=== PATIENT | female | born 1930 | race Asian ===

== ENCOUNTER 2017-08-04 11:33 | Inpatient (IN) ==
[2017-08-04] MEDS ORDERED: cefTRIAXone 1,000 MG in SODIUM CHLORIDE 0.9% 100 ML IV STA (13:30)
[2017-08-04] MEDS ORDERED: AZITHROMYCIN INJ 500 MG in SODIUM CHLORIDE 0.9% 250 ML IV STA (13:30)
[2017-08-04] MEDS ORDERED: ALBUTEROL 2.5 MG/3 ML NEB RESP TX SCH (13:30)
[2017-08-04] MEDS ORDERED: FUROSEMIDE 100 MG/10 ML VIAL IV STA (13:30)
[2017-08-04] MEDS ORDERED: ONDANSETRON 4 MG/2 ML VIAL IV STA (13:30)
[2017-08-04] MEDS ORDERED: methylPREDNISolone SOD SUC 125 MG/2 ML VIAL IV STA (13:30)
[2017-08-04] MEDS ORDERED: FUROSEMIDE 40 MG/4 ML VIAL ONE (14:39)
[2017-08-04] MEDS ORDERED: AZITHROMYCIN 500 MG VIAL IV ONE (14:39)
[2017-08-04] MEDS ORDERED: methylPREDNISolone SOD SUC 125 MG/2 ML VIAL ONE (14:40)
[2017-08-04] MEDS ORDERED: cefTRIAXone 1,000 MG VIAL ONE (14:40)
[2017-08-04] MEDS ORDERED: ONDANSETRON 4 MG/2 ML VIAL ONE (14:40)
[2017-08-04] MEDS ORDERED: FUROSEMIDE 20 MG/2 ML VIAL ONE (14:40)
[2017-08-04 16:36] LABS: Basophils % 0.3 % (0.0-0.8); Eosinophils # 0.2 10*3/uL (0.0-0.87); Hematocrit 32.9 VOL% (35.7-47.0); Hemoglobin 10.4 GM/DL (12.0-16.0); Immature Granulocytes % 0.8 %; Immature Granulocytes Absolute 0.06 #; Lymphocytes # 1.5 10*3/uL (1.4-4.0); Lymphocytes % 18.9 % (21.3-54.2); Mean Corpuscular HGB Conc 31.6 GM/DL (32-36); Mean Corpuscular Hemoglobin 33 PG (27-34); Mean Corpuscular Volume 105.8 FL (87-102); Mean Platelet Volume 13.5 FL (9.6-12.0); Monocytes # 0.9 10*3/uL (0.11-0.8); Monocytes % 11.4 % (1.7-12.7); Neutrophils # 5.2 10*3/uL (1.4-7.4); Neutrophils % 65.6 % (38.7-73.9); Platelet Count 103 T/CUMM (130-400); Red Blood Count 3.11 MC/CUMM (3.8-5.5); Red Cell Distribution Width 15.4 % (9.3-17.3)
[2017-08-04 16:48] LABS: INR 2.8
[2017-08-04 16:55] LABS: Partial Thromboplastin Time 40.7 SECS (0-40)
[2017-08-04 16:56] LABS: PT Patient Result 28.7 SECS
[2017-08-04 17:01] LABS: Alanine Aminotransferase 15 U/L (13-56); Alkaline Phosphatase 95 U/L (45-117); Aspartate Amino Transferase 22 U/L (0-37); Blood Urea Nitrogen 17 MG/DL (7-18); Glucose 101 MG/DL (74-106); Osmolality,Calculated 282.3 MOS/KG (273-304); Potassium 3.8 MMOL/L (3.5-5.1); Sodium 141 MMOL/L (136-145); Total Protein 7.1 G/DL (6.4-8.3)
[2017-08-04 17:08] LABS: Troponin I Only 0.119 NG/ML (0.00-0.045)
[2017-08-04] MEDS ORDERED: ALBUTEROL 2.5 MG/3 ML NEB RESP TX PRN (19:11)
[2017-08-04] MEDS ORDERED: ONDANSETRON 4 MG/2 ML VIAL IV PRN (19:12)
[2017-08-04 21:08] LABS: Apearance,Urine CLEAR (Clear); Bilirubin,Urine Negative (Negative); Blood, Urine Small mg/dL (Negative); Glucose,Urine (UA) Negative (Negative); Ketones,Urine Negative (Negative); Nitrite,Urine Negative (Negative); Protein,Urine Negative; RBC,Urine <1 /HPF (0-4); Urine Color Yellow (Yellow); Urine Specific Gravity 1.009 (1.001-1.035); WBC,Urine <1 /HPF (0-6)
[2017-08-04] MEDS: ATORVASTATIN 40 MG TABLET PO SCH (21:45)
[2017-08-04] MEDS: WARFARIN 5 MG TABLET PO SCH (21:45)
[2017-08-04] MEDS: CARVEDILOL 25 MG TABLET PO SCH (21:45)
[2017-08-04] MEDS: POTASSIUM CHLORIDE 20 MEQ TABLET PO SCH (21:45)
[2017-08-04] MEDS: guaiFENesin/DM ER 600-30 MG TABLET PO SCH (21:45)
[2017-08-04] MEDS: FUROSEMIDE 40 MG/4 ML VIAL IV SCH (21:45)
[2017-08-05] MEDS: FUROSEMIDE 40 MG/4 ML VIAL IV SCH ×3 (01:07→13:30)
[2017-08-05] MEDS: POTASSIUM CHLORIDE 20 MEQ TABLET PO SCH ×2 (01:07→04:42)
[2017-08-05] MEDS: NITROGLYCERIN 2% OINT 1 INCH/GM PACK TOP SCH ×5 (01:07→21:27)
[2017-08-05 05:53] LABS: Basophils % 0.1 % (0.0-0.8); Hematocrit 33.3 VOL% (35.7-47.0); Hemoglobin 10.5 GM/DL (12.0-16.0); Immature Granulocytes % 0.6 %; Immature Granulocytes Absolute 0.06 #; Lymphocytes # 0.5 10*3/uL (1.4-4.0); Lymphocytes % 4.7 % (21.3-54.2); Mean Corpuscular HGB Conc 31.5 GM/DL (32-36); Mean Corpuscular Hemoglobin 33 PG (27-34); Mean Corpuscular Volume 105.7 FL (87-102); Mean Platelet Volume 14.3 FL (9.6-12.0); Monocytes # 0.2 10*3/uL (0.11-0.8); Monocytes % 1.9 % (1.7-12.7); Neutrophils # 9.6 10*3/uL (1.4-7.4); Neutrophils % 92.7 % (38.7-73.9); Platelet Count 108 T/CUMM (130-400); Red Blood Count 3.15 MC/CUMM (3.8-5.5); Red Cell Distribution Width 15.2 % (9.3-17.3); White Blood Count 10.4 T/CUMM (4-12)
[2017-08-05] MEDS: LEVOTHYROXINE 25 MCG TABLET PO SCH (05:53)
[2017-08-05 06:12] LABS: Calcium 8.4 MG/DL (8.5-10.1); Magnesium 1.8 MG/DL (1.8-2.4); Osmolality,Calculated 287.3 MOS/KG (273-304); Potassium 4.5 MMOL/L (3.5-5.1); Risk Ratio 2.41; VLDL CHOLESTEROL 11.4 MG/DL
[2017-08-05 06:13] LABS: INR 2.6
[2017-08-05 06:26] LABS: PT Patient Result 26.8 SECS
[2017-08-05 06:33] LABS: Lymphocytes 5 % (20-55); Segmented Neutrophils 93 % (50-85); Total Cells Counted 100
[2017-08-05 06:34] LABS: Hypochromasia 1+; Platelet Estimate Decreased
[2017-08-05] MEDS ORDERED: LEVOFLOXACIN 500 MG TABLET PO ONE (09:00)
[2017-08-05] MEDS: CARVEDILOL 25 MG TABLET PO SCH ×2 (10:09→21:20)
[2017-08-05] MEDS: amLODIPine 5 MG TABLET PO SCH (10:09)
[2017-08-05] MEDS: guaiFENesin/DM ER 600-30 MG TABLET PO SCH ×2 (10:09→21:20)
[2017-08-05] MEDS: ALLOPURINOL 100 MG TABLET PO SCH (10:09)
[2017-08-05] MEDS: OLMESARTAN 20 MG TABLET PO SCH (10:10)
[2017-08-05] MEDS ORDERED: ACETAMINOPHEN 325 MG TABLET PO PRN (16:04)
[2017-08-05] MEDS: FUROSEMIDE 40 MG TABLET PO SCH (16:39)
[2017-08-05] MEDS: WARFARIN 5 MG TABLET PO SCH (19:09)
[2017-08-05] MEDS: ATORVASTATIN 40 MG TABLET PO SCH (21:20)
[2017-08-06] MEDS: NITROGLYCERIN 2% OINT 1 INCH/GM PACK TOP SCH ×4 (02:49→17:45)
[2017-08-06 06:07] LABS: Calcium 8.9 MG/DL (8.5-10.1); Osmolality,Calculated 288.5 MOS/KG (273-304); Potassium 4.3 MMOL/L (3.5-5.1)
[2017-08-06] MEDS: LEVOTHYROXINE 25 MCG TABLET PO SCH (06:33)
[2017-08-06] MEDS: FUROSEMIDE 40 MG TABLET PO SCH ×2 (08:18→16:11)
[2017-08-06] MEDS: guaiFENesin/DM ER 600-30 MG TABLET PO SCH ×2 (08:19→21:40)
[2017-08-06] MEDS: ALLOPURINOL 100 MG TABLET PO SCH (08:19)
[2017-08-06] MEDS: LEVOFLOXACIN 250 MG TABLET PO SCH (08:19)
[2017-08-06] MEDS: amLODIPine 5 MG TABLET PO SCH (08:19)
[2017-08-06] MEDS: CARVEDILOL 25 MG TABLET PO SCH ×2 (08:19→23:28)
[2017-08-06] MEDS: OLMESARTAN 20 MG TABLET PO SCH (08:19)
[2017-08-06] MEDS ORDERED: WARFARIN 7.5 MG TABLET PO SCH (19:11)
[2017-08-06] MEDS: ATORVASTATIN 40 MG TABLET PO SCH (21:40)
[2017-08-07] MEDS: NITROGLYCERIN 2% OINT 1 INCH/GM PACK TOP SCH ×3 (03:34→12:22)
[2017-08-07] MEDS: LEVOTHYROXINE 25 MCG TABLET PO SCH (05:39)
[2017-08-07 06:08] LABS: Calcium 8.4 MG/DL (8.5-10.1); Osmolality,Calculated 290.5 MOS/KG (273-304); Potassium 4.4 MMOL/L (3.5-5.1)
[2017-08-07 07:59] VITALS: BP 123/58
[2017-08-07] MEDS: ALLOPURINOL 100 MG TABLET PO SCH (08:36)
[2017-08-07] MEDS: CARVEDILOL 25 MG TABLET PO SCH (08:36)
[2017-08-07] MEDS: LEVOFLOXACIN 250 MG TABLET PO SCH (08:36)
[2017-08-07] MEDS: amLODIPine 5 MG TABLET PO SCH (08:37)
[2017-08-07] MEDS: guaiFENesin/DM ER 600-30 MG TABLET PO SCH (08:37)
[2017-08-07] MEDS: FUROSEMIDE 40 MG TABLET PO SCH (08:37)
[2017-08-07] MEDS: OLMESARTAN 20 MG TABLET PO SCH (08:37)
== END 2017-08-07 13:10 | disposition home or self-care (01) | DRG 291 ==
LOC: N.ED 11:33 → SUATTDRO 18:16 → N.EDINP 18:16 → N.TELEN 19:40
PROVIDERS: ADMIT Hospitalist; ATTEND Internal Medicine

== ENCOUNTER 2017-09-01 02:45 | Inpatient (IN) ==
[2017-09-01] MEDS ORDERED: SODIUM CHLORIDE 0.9% 500 ML IV STA (03:50)
[2017-09-01 05:04] LABS: Basophils % 0.2 % (0.0-0.8); Eosinophils % 0.2 % (0.00-10.9); Hematocrit 42.5 VOL% (35.7-47.0); Hemoglobin 13.5 GM/DL (12.0-16.0); Immature Granulocytes % 0.7 %; Immature Granulocytes Absolute 0.03 #; Lymphocytes # 0.7 10*3/uL (1.4-4.0); Lymphocytes % 16.4 % (21.3-54.2); Mean Corpuscular HGB Conc 31.8 GM/DL (32-36); Mean Corpuscular Hemoglobin 33 PG (27-34); Mean Corpuscular Volume 103.9 FL (87-102); Monocytes # 0.7 10*3/uL (0.11-0.8); Monocytes % 16.9 % (1.7-12.7); Neutrophils # 2.7 10*3/uL (1.4-7.4); Neutrophils % 65.6 % (38.7-73.9); Red Blood Count 4.09 MC/CUMM (3.8-5.5); Red Cell Distribution Width 14.4 % (9.3-17.3); White Blood Count 4.2 T/CUMM (4-12)
[2017-09-01 05:07] LABS: Albumin 3.5 G/DL (3.4-5.0); Bilirubin,Total 0.5 MG/DL (0.2-1.0); Calcium 8.8 MG/DL (8.5-10.1); Osmolality,Calculated 277.1 MOS/KG (273-304); Potassium 4.6 MMOL/L (3.5-5.1); Total Protein 7.1 G/DL (6.4-8.3)
[2017-09-01 05:09] LABS: INR 2.8
[2017-09-01 05:17] LABS: Platelet Count 94 T/CUMM (130-400)
[2017-09-01 05:26] LABS: PT Patient Result 28.5 SECS
[2017-09-01 05:28] LABS: Troponin I Only 0.15 NG/ML (0.00-0.045)
[2017-09-01 05:43] LABS: Lactic Acid 1.5 MMOL/L (0.4-2.0)
[2017-09-01] MEDS: ACYCLOVIR INJ 1,000 MG in SODIUM CHLORIDE 0.9% 250 ML IV SCH ×3 (05:50→21:43)
[2017-09-01 06:18] LABS: Eosinophils 2 % (0-10); Hypochromasia 1+; Lymphocytes 17 % (20-55); Platelet Estimate Decreased; Segmented Neutrophils 68 % (50-85); Total Cells Counted 100
[2017-09-01 06:21] LABS: Apearance,Urine Slightly Hazy (Clear); Urine Color Yellow (Yellow)
[2017-09-01 06:22] LABS: Bilirubin,Urine Negative (Negative); Blood, Urine Negative (Negative); Glucose,Urine (UA) Negative (Negative); Hyaline Casts,Urine 5 /LPF (0-3); Ketones,Urine 5 mg/dL (Negative); Mucus,Urine Occasional /LPF (Occasional); Nitrite,Urine Negative (Negative); Protein,Urine 30 MG/DL; Squamous Epithelial Cell,Urine Occasional /HPF (0-10); Urine Specific Gravity 1.013 (1.001-1.035); Urine Urobilinogen < 2.0 EU/DL (0.2-1.0); WBC,Urine 1 /HPF (0-6)
[2017-09-01] MEDS ORDERED: ONDANSETRON 4 MG/2 ML VIAL IV PRN (08:55)
[2017-09-01] MEDS ORDERED: MORPHINE 2 MG/1 ML SYRINGE IV PRN (08:55)
[2017-09-01] MEDS ORDERED: FUROSEMIDE 40 MG TABLET PO SCH (08:55)
[2017-09-01] MEDS ORDERED: OLMESARTAN 20 MG TABLET PO SCH (09:00)
[2017-09-01] MEDS: PANTOPRAZOLE 40 MG TABLET PO SCH (10:00)
[2017-09-01] MEDS: ALLOPURINOL 100 MG TABLET PO SCH (10:00)
[2017-09-01] MEDS: LEVOTHYROXINE 25 MCG TABLET PO SCH (10:00)
[2017-09-01] MEDS: DOCUSATE SODIUM 100 MG CAPSULE PO SCH ×2 (10:00→21:44)
[2017-09-01] MEDS: SODIUM CHLORIDE 0.9% 1,000 ML IV SCH (10:01)
[2017-09-01] MEDS: ASPIRIN 325 MG TABLET PO SCH (10:01)
[2017-09-01] MEDS: CETIRIZINE 10 MG TABLET PO SCH (10:02)
[2017-09-01 10:11] LABS: Risk Ratio 3.71; Thyroid Stimulating Hormone 8.91 uIU/ml (0.358-3.74); VLDL CHOLESTEROL 24.8 MG/DL
[2017-09-01] MEDS: WARFARIN 5 MG TABLET PO SCH (17:15)
[2017-09-01] MEDS: ATORVASTATIN 40 MG TABLET PO SCH (21:44)
[2017-09-01] MEDS ORDERED: GABAPENTIN 400 MG CAPSULE PO ONE (23:30)
[2017-09-02] MEDS: ACYCLOVIR INJ 1,000 MG in SODIUM CHLORIDE 0.9% 250 ML IV SCH ×3 (06:00→23:08)
[2017-09-02] MEDS: LEVOTHYROXINE 25 MCG TABLET PO SCH (06:00)
[2017-09-02] MEDS: valACYclovir 500 MG TABLET PO SCH ×3 (09:22→23:08)
[2017-09-02] MEDS: CETIRIZINE 10 MG TABLET PO SCH (09:23)
[2017-09-02] MEDS: PANTOPRAZOLE 40 MG TABLET PO SCH (09:23)
[2017-09-02] MEDS: DOCUSATE SODIUM 100 MG CAPSULE PO SCH ×2 (09:24→23:08)
[2017-09-02] MEDS: ASPIRIN 325 MG TABLET PO SCH (09:24)
[2017-09-02] MEDS: ALLOPURINOL 100 MG TABLET PO SCH (09:24)
[2017-09-02] MEDS: SODIUM CHLORIDE 0.9% 1,000 ML IV SCH ×2 (09:25→12:52)
[2017-09-02] MEDS: WARFARIN 5 MG TABLET PO SCH (19:26)
[2017-09-02] MEDS: ATORVASTATIN 40 MG TABLET PO SCH (23:09)
[2017-09-03] MEDS: SODIUM CHLORIDE 0.9% 1,000 ML IV SCH ×2 (06:00→21:10)
[2017-09-03] MEDS: ACYCLOVIR INJ 1,000 MG in SODIUM CHLORIDE 0.9% 250 ML IV SCH (06:01)
[2017-09-03] MEDS: LEVOTHYROXINE 25 MCG TABLET PO SCH (06:01)
[2017-09-03 06:35] LABS: Calcium 7.4 MG/DL (8.5-10.1); Osmolality,Calculated 292.8 MOS/KG (273-304)
[2017-09-03] MEDS ORDERED: ACYCLOVIR INJ 500 MG in SODIUM CHLORIDE 0.9% 100 ML IV SCH (09:00)
[2017-09-03] MEDS: ASPIRIN 325 MG TABLET PO SCH (09:10)
[2017-09-03] MEDS: ALLOPURINOL 100 MG TABLET PO SCH (09:10)
[2017-09-03] MEDS: valACYclovir 500 MG TABLET PO SCH ×3 (09:10→21:10)
[2017-09-03] MEDS: CETIRIZINE 10 MG TABLET PO SCH (09:10)
[2017-09-03] MEDS: PANTOPRAZOLE 40 MG TABLET PO SCH (09:10)
[2017-09-03] MEDS: DOCUSATE SODIUM 100 MG CAPSULE PO SCH ×2 (09:10→21:08)
[2017-09-03] MEDS ORDERED: LEVOFLOXACIN INJ 500 MG in PREMIX 1 EACH IV ONE (16:20)
[2017-09-03 17:06] LABS: PT Patient Result 64.7 SECS
[2017-09-03 17:07] LABS: INR 6.6
[2017-09-03] MEDS ORDERED: WARFARIN 7.5 MG TABLET PO SCH (18:00)
[2017-09-03] MEDS: ATORVASTATIN 40 MG TABLET PO SCH (21:08)
[2017-09-04] MEDS: ACETAMINOPHEN 325 MG TABLET PO PRN ×2 (02:39→08:48)
[2017-09-04] MEDS: SODIUM CHLORIDE 0.9% 1,000 ML IV SCH ×2 (02:40→17:39)
[2017-09-04] MEDS: LEVOTHYROXINE 25 MCG TABLET PO SCH (05:49)
[2017-09-04 06:11] LABS: Basophils % 0.2 % (0.0-0.8); Eosinophils # 0.3 10*3/uL (0.0-0.87); Eosinophils % 4.3 % (0.00-10.9); Hematocrit 30.4 VOL% (35.7-47.0); Hemoglobin 9.7 GM/DL (12.0-16.0); Immature Granulocytes % 0.7 %; Immature Granulocytes Absolute 0.04 #; Lymphocytes # 0.9 10*3/uL (1.4-4.0); Lymphocytes % 14.3 % (21.3-54.2); Mean Corpuscular HGB Conc 31.9 GM/DL (32-36); Mean Corpuscular Hemoglobin 33 PG (27-34); Mean Corpuscular Volume 104.1 FL (87-102); Monocytes # 0.8 10*3/uL (0.11-0.8); Monocytes % 12.5 % (1.7-12.7); Neutrophils # 4.2 10*3/uL (1.4-7.4); Platelet Count 73 T/CUMM (130-400); Red Blood Count 2.92 MC/CUMM (3.8-5.5); Red Cell Distribution Width 14.7 % (9.3-17.3); White Blood Count 6.1 T/CUMM (4-12)
[2017-09-04 06:33] LABS: Hypochromasia 1+; Target Cells Slight
[2017-09-04 06:36] LABS: PT Patient Result 58.9 SECS; Partial Thromboplastin Time 55.6 SECS (0-40)
[2017-09-04 06:44] LABS: Calcium 6.9 MG/DL (8.5-10.1); Osmolality,Calculated 291.1 MOS/KG (273-304); Potassium 4.3 MMOL/L (3.5-5.1)
[2017-09-04] MEDS: ALLOPURINOL 100 MG TABLET PO SCH (08:47)
[2017-09-04] MEDS: valACYclovir 500 MG TABLET PO SCH ×3 (08:47→21:03)
[2017-09-04] MEDS: DOCUSATE SODIUM 100 MG CAPSULE PO SCH ×2 (08:48→21:02)
[2017-09-04] MEDS: ASPIRIN EC 81 MG TABLET PO SCH (08:49)
[2017-09-04] MEDS: PANTOPRAZOLE 40 MG TABLET PO SCH (08:49)
[2017-09-04] MEDS: CETIRIZINE 10 MG TABLET PO SCH (08:49)
[2017-09-04] MEDS: ACYCLOVIR INJ 250 MG in SODIUM CHLORIDE 0.9% 100 ML IV SCH (08:51)
[2017-09-04] MEDS ORDERED: FUROSEMIDE 40 MG/4 ML VIAL IV ONE (18:10)
[2017-09-04] MEDS ORDERED: FUROSEMIDE 40 MG/4 ML VIAL ONE (18:21)
[2017-09-04] MEDS: ALBUTEROL 2.5 MG/3 ML NEB RESP TX PRN (18:25)
[2017-09-04] MEDS ORDERED: IPRATROPIUM 500 MCG/2.5 ML NEB RESP TX PRN (18:35)
[2017-09-04 19:21] LABS: ABG Base Excess -11.4 MMOL/L (-2.5-2.5); ABG HCO3 15.5 MMOL/L (20-26); ABG Oxygen Saturation 96.5 % (95-100); ABG PCO2 31.3 MM HG (35-48); ABG PH 7.274 (7.35-7.45); ABG PO2 88.3 MM HG (80-95); ABG TCO2 13.2 MMOL/L (23-27); Allen Test Positive
[2017-09-04] MEDS: ATORVASTATIN 40 MG TABLET PO SCH (21:02)
[2017-09-05] MEDS: ALBUTEROL 2.5 MG/3 ML NEB RESP TX PRN ×2 (01:11→12:55)
[2017-09-05] MEDS ORDERED: ZALEPLON 5 MG CAPSULE PO PRN (01:55)
[2017-09-05 07:28] LABS: Eosinophils # 0.1 10*3/uL (0.0-0.87); Eosinophils % 0.6 % (0.00-10.9); Hemoglobin 10.7 GM/DL (12.0-16.0); Immature Granulocytes % 0.9 %; Immature Granulocytes Absolute 0.07 #; Lymphocytes # 0.8 10*3/uL (1.4-4.0); Lymphocytes % 9.9 % (21.3-54.2); Mean Corpuscular HGB Conc 31.5 GM/DL (32-36); Mean Corpuscular Hemoglobin 33 PG (27-34); Mean Corpuscular Volume 104.6 FL (87-102); Mean Platelet Volume 14.2 FL (9.6-12.0); Monocytes # 0.8 10*3/uL (0.11-0.8); Monocytes % 9.4 % (1.7-12.7); Neutrophils # 6.3 10*3/uL (1.4-7.4); Neutrophils % 79.2 % (38.7-73.9); Platelet Count 81 T/CUMM (130-400); Red Blood Count 3.25 MC/CUMM (3.8-5.5); Red Cell Distribution Width 14.6 % (9.3-17.3)
[2017-09-05] MEDS: LEVOTHYROXINE 25 MCG TABLET PO SCH (07:35)
[2017-09-05 07:56] LABS: Hypochromasia 1+; Macrocytosis Slight
[2017-09-05 08:17] LABS: Calcium 7.7 MG/DL (8.5-10.1); Osmolality,Calculated 292.3 MOS/KG (273-304); PT Patient Result 54.3 SECS; Potassium 4.5 MMOL/L (3.5-5.1)
[2017-09-05 08:18] LABS: INR 5.5
[2017-09-05] MEDS: DOCUSATE SODIUM 100 MG CAPSULE PO SCH ×2 (09:06→21:32)
[2017-09-05] MEDS: valACYclovir 500 MG TABLET PO SCH (09:06)
[2017-09-05] MEDS: CETIRIZINE 10 MG TABLET PO SCH (09:06)
[2017-09-05] MEDS: PANTOPRAZOLE 40 MG TABLET PO SCH (09:06)
[2017-09-05] MEDS: ALLOPURINOL 100 MG TABLET PO SCH (09:06)
[2017-09-05] MEDS: ASPIRIN EC 81 MG TABLET PO SCH (09:06)
[2017-09-05] MEDS: ACYCLOVIR INJ 250 MG in SODIUM CHLORIDE 0.9% 100 ML IV SCH (09:09)
[2017-09-05 10:15] LABS: Apearance,Urine CLEAR (Clear); Bacteria,Urine Occasional /HPF (Few); Bilirubin,Urine Negative (Negative); Blood, Urine Small mg/dL (Negative); Glucose,Urine (UA) Negative (Negative); Ketones,Urine Negative (Negative); Nitrite,Urine Negative (Negative); Protein,Urine Negative; RBC,Urine 8 /HPF (0-4); Squamous Epithelial Cell,Urine Occasional /HPF (0-10); Urine Color Yellow (Yellow); Urine Specific Gravity 1.006 (1.001-1.035); Urine Urobilinogen < 2.0 EU/DL (0.2-1.0); WBC,Urine 1 /HPF (0-6)
[2017-09-05] MEDS: SODIUM CHLORIDE 0.9% 1,000 ML IV SCH ×2 (10:50→17:44)
[2017-09-05] MEDS ORDERED: LORazepam 2 MG/1 ML VIAL IV PRN (15:18)
[2017-09-05] MEDS ORDERED: ZIPRASIDONE 20 MG/1 ML VIAL IM PRN (15:19)
[2017-09-05] MEDS: LEVOFLOXACIN INJ 500 MG in PREMIX 1 EACH IV SCH ×2 (16:48→19:15)
[2017-09-05] MEDS ORDERED: methylPREDNISolone SOD SUC 125 MG/2 ML VIAL IV ONE (18:58)
[2017-09-05] MEDS ORDERED: FUROSEMIDE 40 MG/4 ML VIAL ONE (19:02)
[2017-09-05] MEDS ORDERED: methylPREDNISolone SOD SUC 40 MG/1 ML VIAL ONE (19:03)
[2017-09-05] MEDS ORDERED: FUROSEMIDE 40 MG/4 ML VIAL IV ONE (19:19)
[2017-09-05] MEDS ORDERED: SODIUM BICARB INJ 50 MEQ in SODIUM CHLORIDE 0.45% 1,000 ML IV SCH (21:00)
[2017-09-05] MEDS: ATORVASTATIN 40 MG TABLET PO SCH (21:32)
[2017-09-06 06:36] LABS: Basophils % 0.1 % (0.0-0.8); Hematocrit 35.5 VOL% (35.7-47.0); Hemoglobin 11.4 GM/DL (12.0-16.0); Immature Granulocytes % 0.9 %; Immature Granulocytes Absolute 0.08 #; Lymphocytes # 0.4 10*3/uL (1.4-4.0); Lymphocytes % 4.2 % (21.3-54.2); Mean Corpuscular HGB Conc 32.1 GM/DL (32-36); Mean Corpuscular Hemoglobin 33 PG (27-34); Mean Corpuscular Volume 101.4 FL (87-102); Mean Platelet Volume 14.1 FL (9.6-12.0); Monocytes # 0.1 10*3/uL (0.11-0.8); Monocytes % 1.2 % (1.7-12.7); Neutrophils # 8.3 10*3/uL (1.4-7.4); Neutrophils % 93.6 % (38.7-73.9); Platelet Count 80 T/CUMM (130-400); Red Cell Distribution Width 14.5 % (9.3-17.3); White Blood Count 8.9 T/CUMM (4-12)
[2017-09-06 06:47] LABS: INR 4.6
[2017-09-06] MEDS: LEVOTHYROXINE 25 MCG TABLET PO SCH (06:49)
[2017-09-06 06:59] LABS: PT Patient Result 45.6 SECS
[2017-09-06 07:02] LABS: Hypochromasia Slight; Lymphocytes 2 % (20-55); Segmented Neutrophils 97 % (50-85); Total Cells Counted 100
[2017-09-06 07:03] LABS: Platelet Estimate Decreased
[2017-09-06 07:16] LABS: Calcium 7.7 MG/DL (8.5-10.1); Osmolality,Calculated 296.4 MOS/KG (273-304)
[2017-09-06] MEDS: SODIUM CHLORIDE 0.9% 1,000 ML IV SCH ×2 (09:36→16:09)
[2017-09-06] MEDS: ASPIRIN EC 81 MG TABLET PO SCH (09:39)
[2017-09-06] MEDS: cloNIDine 0.1 MG TABLET PO SCH ×3 (09:39→20:31)
[2017-09-06] MEDS: PANTOPRAZOLE 40 MG TABLET PO SCH (09:39)
[2017-09-06] MEDS: DOCUSATE SODIUM 100 MG CAPSULE PO SCH ×2 (09:39→20:31)
[2017-09-06] MEDS: CETIRIZINE 10 MG TABLET PO SCH (09:39)
[2017-09-06] MEDS: ALLOPURINOL 100 MG TABLET PO SCH (09:39)
[2017-09-06] MEDS: methylPREDNISolone SOD SUC 40 MG/1 ML VIAL IV SCH (11:29)
[2017-09-06] MEDS: NYSTATIN POWDER 15 GM BOTTLE TOP SCH (20:31)
[2017-09-06] MEDS: ATORVASTATIN 40 MG TABLET PO SCH (20:31)
[2017-09-06] MEDS: CARVEDILOL 25 MG TABLET PO SCH (21:39)
[2017-09-07] MEDS: SODIUM CHLORIDE 0.9% 1,000 ML IV SCH ×2 (00:10→08:45)
[2017-09-07] MEDS: methylPREDNISolone SOD SUC 40 MG/1 ML VIAL IV SCH ×2 (01:11→11:04)
[2017-09-07] MEDS: LEVOTHYROXINE 25 MCG TABLET PO SCH (06:42)
[2017-09-07 08:32] LABS: Apearance,Urine Slightly Hazy (Clear); Bacteria,Urine Occasional /HPF (Few); Bilirubin,Urine Negative (Negative); Blood, Urine Moderate mg/dL (Negative); Glucose,Urine (UA) Negative (Negative); Ketones,Urine Negative (Negative); Mucus,Urine Occasional /LPF (Occasional); Nitrite,Urine Negative (Negative); Protein,Urine Negative; RBC,Urine 39 /HPF (0-4); Squamous Epithelial Cell,Urine Occasional /HPF (0-10); Urine Color Straw (Yellow); Urine Specific Gravity 1.005 (1.001-1.035); Urine Urobilinogen < 2.0 EU/DL (0.2-1.0); WBC,Urine 20 /HPF (0-6)
[2017-09-07 08:36] LABS: Basophils % 0.1 % (0.0-0.8); Hematocrit 30.4 VOL% (35.7-47.0); Hemoglobin 9.9 GM/DL (12.0-16.0); Immature Granulocytes % 0.9 %; Immature Granulocytes Absolute 0.07 #; Lymphocytes # 0.4 10*3/uL (1.4-4.0); Lymphocytes % 5.7 % (21.3-54.2); Mean Corpuscular HGB Conc 32.6 GM/DL (32-36); Mean Corpuscular Hemoglobin 33 PG (27-34); Mean Platelet Volume 14.3 FL (9.6-12.0); Monocytes # 0.3 10*3/uL (0.11-0.8); Monocytes % 3.5 % (1.7-12.7); Neutrophils # 6.8 10*3/uL (1.4-7.4); Neutrophils % 89.8 % (38.7-73.9); Red Blood Count 3.01 MC/CUMM (3.8-5.5); Red Cell Distribution Width 14.6 % (9.3-17.3); White Blood Count 7.5 T/CUMM (4-12)
[2017-09-07 08:37] LABS: Platelet Count 84 T/CUMM (130-400)
[2017-09-07] MEDS: cloNIDine 0.1 MG TABLET PO SCH ×3 (08:43→21:26)
[2017-09-07] MEDS: CETIRIZINE 10 MG TABLET PO SCH (08:44)
[2017-09-07] MEDS: NYSTATIN POWDER 15 GM BOTTLE TOP SCH ×2 (08:44→21:26)
[2017-09-07] MEDS: ASPIRIN EC 81 MG TABLET PO SCH (08:44)
[2017-09-07] MEDS: CARVEDILOL 25 MG TABLET PO SCH ×2 (08:44→21:25)
[2017-09-07] MEDS: ALLOPURINOL 100 MG TABLET PO SCH (08:44)
[2017-09-07] MEDS: PANTOPRAZOLE 40 MG TABLET PO SCH (08:44)
[2017-09-07] MEDS: DOCUSATE SODIUM 100 MG CAPSULE PO SCH ×2 (08:44→21:25)
[2017-09-07 08:49] LABS: PT Patient Result 67.1 SECS
[2017-09-07 08:50] LABS: INR 6.8
[2017-09-07 08:58] LABS: Burr Cells Slight; Giant Platelets Few; Hypochromasia 1+; Lymphocytes 4 % (20-55); Ovalocytes Slight; Platelet Estimate Decreased; Segmented Neutrophils 94 % (50-85); Total Cells Counted 100
[2017-09-07 08:59] LABS: Macrocytosis Slight
[2017-09-07 09:35] LABS: Calcium 7.6 MG/DL (8.5-10.1); Osmolality,Calculated 312.7 MOS/KG (273-304); Potassium 4.6 MMOL/L (3.5-5.1)
[2017-09-07 09:38] LABS: Albumin 2.3 G/DL (3.4-5.0); Bilirubin,Total 0.6 MG/DL (0.2-1.0); Calcium 7.6 MG/DL (8.5-10.1); Potassium 4.6 MMOL/L (3.5-5.1); Total Protein 5.6 G/DL (6.4-8.3)
[2017-09-07] MEDS: LEVOFLOXACIN INJ 500 MG in PREMIX 1 EACH IV SCH (16:29)
[2017-09-07] MEDS: ATORVASTATIN 40 MG TABLET PO SCH (21:25)
[2017-09-08] MEDS: methylPREDNISolone SOD SUC 40 MG/1 ML VIAL IV SCH (00:15)
[2017-09-08] MEDS: LEVOTHYROXINE 25 MCG TABLET PO SCH (06:01)
[2017-09-08 06:46] LABS: Hematocrit 33.1 VOL% (35.7-47.0); Hemoglobin 10.8 GM/DL (12.0-16.0); Immature Granulocytes % 0.8 %; Immature Granulocytes Absolute 0.06 #; Lymphocytes # 0.5 10*3/uL (1.4-4.0); Lymphocytes % 5.8 % (21.3-54.2); Mean Corpuscular HGB Conc 32.6 GM/DL (32-36); Mean Corpuscular Hemoglobin 33 PG (27-34); Mean Corpuscular Volume 100.6 FL (87-102); Mean Platelet Volume 14.3 FL (9.6-12.0); Monocytes # 0.3 10*3/uL (0.11-0.8); Monocytes % 3.5 % (1.7-12.7); NRBC # 0.02 10*3/uL; Neutrophils % 89.9 % (38.7-73.9); Platelet Count 104 T/CUMM (130-400); Red Blood Count 3.29 MC/CUMM (3.8-5.5); Red Cell Distribution Width 14.5 % (9.3-17.3); White Blood Count 7.8 T/CUMM (4-12)
[2017-09-08 07:16] LABS: Calcium 7.7 MG/DL (8.5-10.1); Osmolality,Calculated 307.1 MOS/KG (273-304); Potassium 4.5 MMOL/L (3.5-5.1)
[2017-09-08 07:17] LABS: PT Patient Result 72.5 SECS
[2017-09-08 07:18] LABS: INR 7.4
[2017-09-08] MEDS ORDERED: PHYTONADIONE 10 MG/1 ML AMP IV ONE (07:32)
[2017-09-08] MEDS: amLODIPine 5 MG TABLET PO SCH (09:12)
[2017-09-08] MEDS: predniSONE 20 MG TABLET PO SCH (09:12)
[2017-09-08] MEDS: DOCUSATE SODIUM 100 MG CAPSULE PO SCH ×2 (09:12→22:24)
[2017-09-08] MEDS: ASPIRIN EC 81 MG TABLET PO SCH (09:12)
[2017-09-08] MEDS: CARVEDILOL 25 MG TABLET PO SCH ×2 (09:13→22:24)
[2017-09-08] MEDS: PANTOPRAZOLE 40 MG TABLET PO SCH (09:13)
[2017-09-08] MEDS: CETIRIZINE 10 MG TABLET PO SCH (09:13)
[2017-09-08] MEDS: cloNIDine 0.1 MG TABLET PO SCH ×3 (09:13→22:24)
[2017-09-08] MEDS: ALLOPURINOL 100 MG TABLET PO SCH (09:13)
[2017-09-08] MEDS: NYSTATIN POWDER 15 GM BOTTLE TOP SCH ×2 (09:13→22:25)
[2017-09-08] MEDS ORDERED: SODIUM CHLORIDE 0.65% NASAL SPRAY 45 ML BOTTLE BOTH NARES PRN (11:22)
[2017-09-08 15:26] LABS: Fibrinogen Quant Value 497 MG% (200-400)
[2017-09-08] MEDS: ATORVASTATIN 40 MG TABLET PO SCH (22:24)
[2017-09-08] MEDS ORDERED: cloNIDine 0.1 MG/24 HR PATCH TRANSDERM SCH (22:30)
[2017-09-09] MEDS: LEVOTHYROXINE 25 MCG TABLET PO SCH (06:59)
[2017-09-09 07:07] LABS: Basophils % 0.1 % (0.0-0.8); Hematocrit 31.7 VOL% (35.7-47.0); Hemoglobin 10.2 GM/DL (12.0-16.0); Immature Granulocytes % 1.1 %; Immature Granulocytes Absolute 0.08 #; Lymphocytes # 0.8 10*3/uL (1.4-4.0); Mean Corpuscular HGB Conc 32.2 GM/DL (32-36); Mean Corpuscular Hemoglobin 33 PG (27-34); Mean Platelet Volume 13.7 FL (9.6-12.0); Monocytes # 0.9 10*3/uL (0.11-0.8); Monocytes % 11.9 % (1.7-12.7); NRBC # 0.02 10*3/uL; Neutrophils # 5.7 10*3/uL (1.4-7.4); Neutrophils % 75.9 % (38.7-73.9); Platelet Count 102 T/CUMM (130-400); Red Blood Count 3.14 MC/CUMM (3.8-5.5); Red Cell Distribution Width 14.6 % (9.3-17.3); White Blood Count 7.5 T/CUMM (4-12)
[2017-09-09 07:35] LABS: Calcium 7.9 MG/DL (8.5-10.1); Osmolality,Calculated 315.4 MOS/KG (273-304); Potassium 4.2 MMOL/L (3.5-5.1)
[2017-09-09 08:26] LABS: INR 1.2
[2017-09-09 08:29] LABS: PT Patient Result 12.4 SECS
[2017-09-09] MEDS: ALLOPURINOL 100 MG TABLET PO SCH (09:01)
[2017-09-09] MEDS: ASPIRIN EC 81 MG TABLET PO SCH (09:01)
[2017-09-09] MEDS: cloNIDine 0.1 MG TABLET PO SCH ×3 (09:01→21:41)
[2017-09-09] MEDS: CARVEDILOL 25 MG TABLET PO SCH ×2 (09:01→21:41)
[2017-09-09] MEDS: NYSTATIN POWDER 15 GM BOTTLE TOP SCH ×2 (09:02→21:41)
[2017-09-09] MEDS: predniSONE 20 MG TABLET PO SCH (09:02)
[2017-09-09] MEDS: DOCUSATE SODIUM 100 MG CAPSULE PO SCH ×2 (09:02→21:32)
[2017-09-09] MEDS: PANTOPRAZOLE 40 MG TABLET PO SCH (09:02)
[2017-09-09] MEDS: CETIRIZINE 10 MG TABLET PO SCH (09:02)
[2017-09-09] MEDS: amLODIPine 5 MG TABLET PO SCH (09:02)
[2017-09-09] MEDS: SODIUM ACETATE 100 MEQ in DEXTROSE 5% NACL 0.22% 1,000 ML IV SCH ×2 (13:00→21:39)
[2017-09-09] MEDS: LEVOFLOXACIN INJ 500 MG in PREMIX 1 EACH IV SCH (17:07)
[2017-09-09] MEDS: ATORVASTATIN 40 MG TABLET PO SCH (21:32)
[2017-09-10] MEDS: LEVOTHYROXINE 25 MCG TABLET PO SCH (05:45)
[2017-09-10] MEDS: SODIUM ACETATE 100 MEQ in DEXTROSE 5% NACL 0.22% 1,000 ML IV SCH ×3 (05:52→17:21)
[2017-09-10 06:51] LABS: Basophils % 0.2 % (0.0-0.8); Hematocrit 31.1 VOL% (35.7-47.0); Hemoglobin 10.2 GM/DL (12.0-16.0); Immature Granulocytes % 1.8 %; Lymphocytes # 1.1 10*3/uL (1.4-4.0); Lymphocytes % 19.4 % (21.3-54.2); Mean Corpuscular HGB Conc 32.8 GM/DL (32-36); Mean Corpuscular Hemoglobin 33 PG (27-34); Mean Platelet Volume 12.8 FL (9.6-12.0); Monocytes # 0.8 10*3/uL (0.11-0.8); Monocytes % 15.2 % (1.7-12.7); Neutrophils # 3.5 10*3/uL (1.4-7.4); Neutrophils % 63.4 % (38.7-73.9); Red Blood Count 3.11 MC/CUMM (3.8-5.5); Red Cell Distribution Width 14.3 % (9.3-17.3); White Blood Count 5.5 T/CUMM (4-12)
[2017-09-10 06:56] LABS: Platelet Count 93 T/CUMM (130-400)
[2017-09-10 07:01] LABS: INR 1.2; PT Patient Result 12.2 SECS
[2017-09-10 07:11] LABS: Hypochromasia 1+
[2017-09-10 07:12] LABS: Platelet Estimate Decreased
[2017-09-10 07:21] LABS: Calcium 7.3 MG/DL (8.5-10.1); Osmolality,Calculated 312.3 MOS/KG (273-304); Potassium 3.4 MMOL/L (3.5-5.1)
[2017-09-10] MEDS: LINEZOLID INJ 600 MG in PREMIX 1 EACH IV SCH ×2 (10:20→20:25)
[2017-09-10] MEDS: ALLOPURINOL 100 MG TABLET PO SCH (10:23)
[2017-09-10] MEDS: PANTOPRAZOLE 40 MG TABLET PO SCH (10:23)
[2017-09-10] MEDS: DOCUSATE SODIUM 100 MG CAPSULE PO SCH ×2 (10:23→21:20)
[2017-09-10] MEDS: CARVEDILOL 25 MG TABLET PO SCH ×2 (10:23→21:20)
[2017-09-10] MEDS: amLODIPine 5 MG TABLET PO SCH (10:23)
[2017-09-10] MEDS: CETIRIZINE 10 MG TABLET PO SCH (10:23)
[2017-09-10] MEDS: ACETAMINOPHEN 325 MG TABLET PO PRN ×2 (10:24→21:24)
[2017-09-10] MEDS: NYSTATIN POWDER 15 GM BOTTLE TOP SCH ×2 (10:24→21:26)
[2017-09-10] MEDS: ASPIRIN EC 81 MG TABLET PO SCH (10:24)
[2017-09-10] MEDS: predniSONE 20 MG TABLET PO SCH (10:24)
[2017-09-10] MEDS ORDERED: WARFARIN 5 MG TABLET PO SCH (18:00)
[2017-09-10] MEDS: ATORVASTATIN 40 MG TABLET PO SCH (21:20)
[2017-09-11] MEDS: SODIUM ACETATE 100 MEQ in DEXTROSE 5% NACL 0.22% 1,000 ML IV SCH (01:20)
[2017-09-11 06:49] LABS: Eosinophils % 0.1 % (0.00-10.9); Hematocrit 30.8 VOL% (35.7-47.0); Hemoglobin 10.1 GM/DL (12.0-16.0); Immature Granulocytes % 1.6 %; Immature Granulocytes Absolute 0.12 #; Lymphocytes # 1.1 10*3/uL (1.4-4.0); Mean Corpuscular HGB Conc 32.8 GM/DL (32-36); Mean Corpuscular Hemoglobin 33 PG (27-34); Mean Corpuscular Volume 99.4 FL (87-102); Mean Platelet Volume 13.1 FL (9.6-12.0); Monocytes % 13.5 % (1.7-12.7); NRBC # 0.02 10*3/uL; Neutrophils # 5.4 10*3/uL (1.4-7.4); Neutrophils % 70.8 % (38.7-73.9); Red Cell Distribution Width 14.1 % (9.3-17.3); White Blood Count 7.7 T/CUMM (4-12)
[2017-09-11 07:00] LABS: INR 1.2; PT Patient Result 12.2 SECS
[2017-09-11 07:04] LABS: Platelet Count 96 T/CUMM (130-400)
[2017-09-11 07:07] LABS: Calcium 6.6 MG/DL (8.5-10.1); Osmolality,Calculated 298.8 MOS/KG (273-304); Potassium 2.9 MMOL/L (3.5-5.1)
[2017-09-11] MEDS: LEVOTHYROXINE 25 MCG TABLET PO SCH (07:15)
[2017-09-11 07:19] LABS: Hypochromasia 1+
[2017-09-11] MEDS: LINEZOLID INJ 600 MG in PREMIX 1 EACH IV SCH (08:52)
[2017-09-11] MEDS ORDERED: POTASSIUM CHLORIDE 20 MEQ TABLET PO SCH (09:00)
[2017-09-11] MEDS: ALLOPURINOL 100 MG TABLET PO SCH (09:53)
[2017-09-11] MEDS: amLODIPine 5 MG TABLET PO SCH (09:53)
[2017-09-11] MEDS: CETIRIZINE 10 MG TABLET PO SCH (09:53)
[2017-09-11] MEDS: DOCUSATE SODIUM 100 MG CAPSULE PO SCH (09:53)
[2017-09-11] MEDS: ASPIRIN EC 81 MG TABLET PO SCH (09:54)
[2017-09-11] MEDS: PANTOPRAZOLE 40 MG TABLET PO SCH (09:54)
[2017-09-11] MEDS: predniSONE 20 MG TABLET PO SCH (09:54)
[2017-09-11] MEDS: CARVEDILOL 25 MG TABLET PO SCH (09:55)
[2017-09-11] MEDS: ACETAMINOPHEN 325 MG TABLET PO PRN (09:57)
[2017-09-11] MEDS: NYSTATIN POWDER 15 GM BOTTLE TOP SCH (09:58)
[2017-09-11] MEDS ORDERED: INFLUENZA VIRUS VACCINE 0.5 ML SYRINGE IM ONE (10:30)
[2017-09-11] MEDS ORDERED: PNEUMOCOCCAL VACCINE (23 VALENT) 0.5 ML VIAL IM ONE (10:30)
[2017-09-11 12:47] VITALS: BP 122/58
== END 2017-09-11 13:05 | disposition swing bed (61) | DRG 682 ==
LOC: EDUNIT# → EDBD → N.ED 02:45 → N.EDINP 06:09 → SUATTDRO 06:09 → N.5E 07:35
PROVIDERS: ADMIT Internal Medicine Geriatric Medicine

== ENCOUNTER 2017-09-16 22:27 | Observation (INO) ==
[2017-09-16] MEDS ORDERED: PNEUMOCOCCAL VACCINE (13 VALENT) 0.5 ML SYRINGE IM ONE (23:54)
[2017-09-16] MEDS ORDERED: INFLUENZA VIRUS VACCINE 0.5 ML SYRINGE IM ONE (23:55)
[2017-09-17] MEDS ORDERED: ONDANSETRON 4 MG/2 ML VIAL IV PRN (00:24)
[2017-09-17] MEDS ORDERED: ACETAMINOPHEN 325 MG TABLET PO PRN (00:24)
[2017-09-17 00:56] LABS: Basophils % 0.1 % (0.0-0.8); Hematocrit 32.2 VOL% (35.7-47.0); Hemoglobin 10.4 GM/DL (12.0-16.0); Immature Granulocytes Absolute 0.09 #; Lymphocytes % 11.5 % (21.3-54.2); Mean Corpuscular HGB Conc 32.3 GM/DL (32-36); Mean Corpuscular Hemoglobin 33 PG (27-34); Mean Corpuscular Volume 100.9 FL (87-102); Mean Platelet Volume 12.5 FL (9.6-12.0); Monocytes # 0.5 10*3/uL (0.11-0.8); Monocytes % 5.8 % (1.7-12.7); Neutrophils # 7.2 10*3/uL (1.4-7.4); Neutrophils % 81.6 % (38.7-73.9); Platelet Count 110 T/CUMM (130-400); Red Blood Count 3.19 MC/CUMM (3.8-5.5); Red Cell Distribution Width 14.6 % (9.3-17.3); White Blood Count 8.8 T/CUMM (4-12)
[2017-09-17 01:12] LABS: PT Patient Result 30.7 SECS
[2017-09-17 01:40] LABS: Albumin 3.2 G/DL (3.4-5.0); Bilirubin,Total 0.4 MG/DL (0.2-1.0); Magnesium 0.9 MG/DL (1.8-2.4); Osmolality,Calculated 289.4 MOS/KG (273-304); Potassium 4.6 MMOL/L (3.5-5.1); Total Protein 6.1 G/DL (6.4-8.3)
[2017-09-17] MEDS ORDERED: ALBUTEROL 2.5 MG/3 ML NEB RESP TX PRN (02:33)
[2017-09-17] MEDS ORDERED: NYSTATIN POWDER 15 GM BOTTLE TOP PRN (02:33)
[2017-09-17] MEDS ORDERED: ACETAMINOPHEN 500 MG TABLET PO PRN (02:33)
[2017-09-17] MEDS ORDERED: BENZONATATE 100 MG CAPSULE PO PRN (02:33)
[2017-09-17] MEDS: LEVOTHYROXINE 25 MCG TABLET PO SCH (05:55)
[2017-09-17 06:45] LABS: INR 3.2
[2017-09-17 06:52] LABS: PT Patient Result 32.5 SECS
[2017-09-17] MEDS ORDERED: MAGNESIUM SULF RIDER 2 GM in PREMIX 1 EACH IV PRN (07:38)
[2017-09-17] MEDS ORDERED: MAGNESIUM SULF RIDER 4 GM in PREMIX 1 EACH IV PRN (07:38)
[2017-09-17] MEDS ORDERED: MAGNESIUM SULF RIDER 2 GM in PREMIX 1 EACH IV ONE (07:39)
[2017-09-17] MEDS: FUROSEMIDE 40 MG TABLET PO SCH ×2 (08:59→14:05)
[2017-09-17] MEDS: OLMESARTAN 20 MG TABLET PO SCH (08:59)
[2017-09-17] MEDS: POTASSIUM CHLORIDE 20 MEQ TABLET PO SCH (08:59)
[2017-09-17] MEDS: predniSONE 20 MG TABLET PO SCH (09:00)
[2017-09-17] MEDS: DOCUSATE SODIUM 100 MG CAPSULE PO SCH (09:00)
[2017-09-17] MEDS: ALLOPURINOL 100 MG TABLET PO SCH (09:00)
[2017-09-17] MEDS: CARVEDILOL 25 MG TABLET PO SCH ×2 (09:00→21:41)
[2017-09-17] MEDS: amLODIPine 5 MG TABLET PO SCH (09:00)
[2017-09-17] MEDS: CETIRIZINE 10 MG TABLET PO SCH (09:00)
[2017-09-17] MEDS ORDERED: FUROSEMIDE 20 MG TABLET ONE (13:58)
[2017-09-17] MEDS ORDERED: WARFARIN 5 MG TABLET PO SCH (18:00)
[2017-09-17] MEDS ORDERED: ATORVASTATIN 40 MG TABLET PO SCH (21:00)
[2017-09-17] MEDS: levETIRAcetam 500 MG TABLET PO SCH (21:41)
[2017-09-17 23:42] LABS: Apearance,Urine CLEAR (Clear); Bilirubin,Urine Negative (Negative); Blood, Urine Negative (Negative); Glucose,Urine (UA) Negative (Negative); Ketones,Urine Negative (Negative); Nitrite,Urine Negative (Negative); Protein,Urine Negative; RBC,Urine <1 /HPF (0-4); Squamous Epithelial Cell,Urine Occasional /HPF (0-10); Urine Color Straw (Yellow); Urine Specific Gravity 1.009 (1.001-1.035); Urine Urobilinogen < 2.0 EU/DL (0.2-1.0); WBC,Urine 1 /HPF (0-6)
[2017-09-18 05:37] LABS: INR 2.8
[2017-09-18 05:41] LABS: PT Patient Result 28.8 SECS
[2017-09-18 06:20] LABS: Calcium 7.7 MG/DL (8.5-10.1); Potassium 4.7 MMOL/L (3.5-5.1)
[2017-09-18] MEDS: LEVOTHYROXINE 25 MCG TABLET PO SCH (08:45)
[2017-09-18] MEDS: FUROSEMIDE 40 MG TABLET PO SCH ×2 (08:52→15:35)
[2017-09-18] MEDS: levETIRAcetam 500 MG TABLET PO SCH (09:50)
[2017-09-18] MEDS: POTASSIUM CHLORIDE 20 MEQ TABLET PO SCH (09:50)
[2017-09-18] MEDS: OLMESARTAN 20 MG TABLET PO SCH (09:50)
[2017-09-18] MEDS: DOCUSATE SODIUM 100 MG CAPSULE PO SCH (09:50)
[2017-09-18] MEDS: CARVEDILOL 25 MG TABLET PO SCH (09:50)
[2017-09-18] MEDS: CETIRIZINE 10 MG TABLET PO SCH (09:51)
[2017-09-18] MEDS: amLODIPine 5 MG TABLET PO SCH (09:51)
[2017-09-18] MEDS: ALLOPURINOL 100 MG TABLET PO SCH (09:51)
[2017-09-18] MEDS: predniSONE 20 MG TABLET PO SCH (09:51)
[2017-09-18 12:10] VITALS: BP 139/56
== END 2017-09-18 16:45 | disposition home or self-care (01) ==
LOC: N.2E 22:27 → N.CARD 22:27 → INTOOBSV 22:27 → UNDODEPREF 10-26 13:24
PROVIDERS: ADMIT Hospitalist; ATTEND Hospitalist

== ENCOUNTER 2017-10-23 15:31 | Inpatient (IN) ==
[2017-10-23] MEDS ORDERED: ALBUTEROL/IPRATROPIUM 3 ML NEB RESP TX STA (16:19)
[2017-10-23] MEDS ORDERED: methylPREDNISolone SOD SUC 125 MG/2 ML VIAL IV STA (16:19)
[2017-10-23] MEDS ORDERED: LEVOFLOXACIN INJ 750 MG in PREMIX 1 EACH IV STA (16:59)
[2017-10-23] MEDS ORDERED: methylPREDNISolone SOD SUC 125 MG/2 ML VIAL ONE (17:07)
[2017-10-23 17:16] LABS: Basophils % 0.2 % (0.0-0.8); Eosinophils # 0.2 10*3/uL (0.0-0.87); Eosinophils % 3.2 % (0.00-10.9); Hematocrit 30.8 VOL% (35.7-47.0); Hemoglobin 9.7 GM/DL (12.0-16.0); Immature Granulocytes % 0.4 %; Immature Granulocytes Absolute 0.02 #; Lymphocytes # 0.8 10*3/uL (1.4-4.0); Lymphocytes % 13.4 % (21.3-54.2); Mean Corpuscular HGB Conc 31.5 GM/DL (32-36); Mean Corpuscular Hemoglobin 34 PG (27-34); Mean Corpuscular Volume 107.7 FL (87-102); Mean Platelet Volume 13.6 FL (9.6-12.0); Monocytes # 0.7 10*3/uL (0.11-0.8); Monocytes % 12.5 % (1.7-12.7); Neutrophils % 70.3 % (38.7-73.9); Platelet Count 108 T/CUMM (130-400); Red Blood Count 2.86 MC/CUMM (3.8-5.5); Red Cell Distribution Width 17.2 % (9.3-17.3); White Blood Count 5.7 T/CUMM (4-12)
[2017-10-23 17:26] LABS: INR 1.6; PT Patient Result 16.4 SECS; Partial Thromboplastin Time 31.9 SECS (0-40)
[2017-10-23 17:38] LABS: Alanine Aminotransferase 15 U/L (13-56); Albumin 3.1 G/DL (3.4-5.0); Alkaline Phosphatase 115 U/L (45-117); Aspartate Amino Transferase 23 U/L (0-37); Bilirubin,Total < 0.39 MG/DL (0.2-1.0); Blood Urea Nitrogen 21 MG/DL (7-18); Calcium 9.2 MG/DL (8.5-10.1); Glucose 95 MG/DL (74-106); Potassium 4.4 MMOL/L (3.5-5.1); Sodium 143 MMOL/L (136-145)
[2017-10-23 17:40] LABS: Troponin I Only 0.179 NG/ML (0.00-0.045)
[2017-10-23] MEDS ORDERED: ACETAMINOPHEN 325 MG TABLET PO PRN (18:33)
[2017-10-23] MEDS ORDERED: DOCUSATE SODIUM 100 MG CAPSULE PO PRN (18:33)
[2017-10-23] MEDS ORDERED: ONDANSETRON 4 MG/2 ML VIAL IV PRN (18:33)
[2017-10-23] MEDS ORDERED: NYSTATIN POWDER 15 GM BOTTLE TOP PRN (18:41)
[2017-10-23] MEDS ORDERED: ACETAMINOPHEN 500 MG TABLET PO PRN (18:41)
[2017-10-23 18:44] LABS: Apearance,Urine CLEAR (Clear); Bilirubin,Urine Negative (Negative); Blood, Urine Negative (Negative); Glucose,Urine (UA) Negative (Negative); Hyaline Casts,Urine 4 /LPF (0-3); Ketones,Urine Negative (Negative); Mucus,Urine Occasional /LPF (Occasional); Nitrite,Urine Negative (Negative); Protein,Urine Negative; Urine Color Colorless (Yellow); Urine Specific Gravity 1.005 (1.001-1.035); Urine Urobilinogen < 2.0 EU/DL (0.2-1.0); WBC,Urine <1 /HPF (0-6)
[2017-10-23] MEDS ORDERED: LEVOFLOXACIN INJ 150 ML IV ONE (20:05)
[2017-10-23] MEDS ORDERED: FUROSEMIDE 100 MG/10 ML VIAL ONE (20:54)
[2017-10-23] MEDS: FUROSEMIDE 40 MG/4 ML VIAL IV SCH (21:03)
[2017-10-23] MEDS: GABAPENTIN 300 MG CAPSULE PO SCH (21:59)
[2017-10-23] MEDS: levETIRAcetam 500 MG TABLET PO SCH (21:59)
[2017-10-23] MEDS: CARVEDILOL 25 MG TABLET PO SCH (21:59)
[2017-10-23] MEDS: ATORVASTATIN 40 MG TABLET PO SCH (21:59)
[2017-10-23] MEDS: cefTRIAXone 1,000 MG in SYRINGE 1 EACH IV SCH (22:00)
[2017-10-24] MEDS: LEVOTHYROXINE 25 MCG TABLET PO SCH (06:18)
[2017-10-24 06:49] LABS: Hematocrit 29.5 VOL% (35.7-47.0); Hemoglobin 9.5 GM/DL (12.0-16.0); Immature Granulocytes % 0.6 %; Immature Granulocytes Absolute 0.03 #; Lymphocytes # 0.5 10*3/uL (1.4-4.0); Mean Corpuscular HGB Conc 32.2 GM/DL (32-36); Mean Corpuscular Hemoglobin 33 PG (27-34); Mean Corpuscular Volume 102.8 FL (87-102); Mean Platelet Volume 13.7 FL (9.6-12.0); Monocytes # 0.1 10*3/uL (0.11-0.8); Monocytes % 1.3 % (1.7-12.7); Neutrophils # 4.1 10*3/uL (1.4-7.4); Neutrophils % 88.1 % (38.7-73.9); Platelet Count 122 T/CUMM (130-400); Red Blood Count 2.87 MC/CUMM (3.8-5.5); Red Cell Distribution Width 16.8 % (9.3-17.3); White Blood Count 4.7 T/CUMM (4-12)
[2017-10-24 06:58] LABS: INR 1.6; PT Patient Result 16.2 SECS
[2017-10-24 07:07] LABS: Calcium 8.6 MG/DL (8.5-10.1); Potassium 4.6 MMOL/L (3.5-5.1)
[2017-10-24] MEDS ORDERED: FUROSEMIDE 40 MG TABLET PO SCH (08:00)
[2017-10-24] MEDS: FUROSEMIDE 40 MG/4 ML VIAL IV SCH ×2 (08:53→16:47)
[2017-10-24] MEDS: amLODIPine 5 MG TABLET PO SCH (08:53)
[2017-10-24] MEDS: OLMESARTAN 20 MG TABLET PO SCH (08:53)
[2017-10-24] MEDS: ALLOPURINOL 100 MG TABLET PO SCH (08:53)
[2017-10-24] MEDS: CARVEDILOL 25 MG TABLET PO SCH ×2 (08:53→20:49)
[2017-10-24] MEDS: levETIRAcetam 500 MG TABLET PO SCH ×2 (08:53→20:49)
[2017-10-24] MEDS: GABAPENTIN 300 MG CAPSULE PO SCH ×2 (08:53→20:49)
[2017-10-24] MEDS: POTASSIUM CHLORIDE 20 MEQ TABLET PO SCH (08:53)
[2017-10-24] MEDS: PANTOPRAZOLE 40 MG TABLET PO SCH (08:53)
[2017-10-24] MEDS: predniSONE 20 MG TABLET PO SCH (08:53)
[2017-10-24] MEDS: LEVOFLOXACIN INJ 250 MG in PREMIX 1 EACH IV SCH (17:08)
[2017-10-24] MEDS ORDERED: BISACODYL 5 MG TABLET PO PRN (17:13)
[2017-10-24] MEDS ORDERED: WARFARIN 5 MG TABLET PO SCH (18:00)
[2017-10-24] MEDS: cefTRIAXone 1,000 MG in SYRINGE 1 EACH IV SCH (20:49)
[2017-10-24] MEDS: ATORVASTATIN 40 MG TABLET PO SCH (20:49)
[2017-10-25] MEDS: LEVOTHYROXINE 25 MCG TABLET PO SCH (05:57)
[2017-10-25 06:39] LABS: Basophils % 0.1 % (0.0-0.8); Hematocrit 30.8 VOL% (35.7-47.0); Hemoglobin 9.7 GM/DL (12.0-16.0); Immature Granulocytes % 0.6 %; Immature Granulocytes Absolute 0.08 #; Lymphocytes # 1.1 10*3/uL (1.4-4.0); Lymphocytes % 8.6 % (21.3-54.2); Mean Corpuscular HGB Conc 31.5 GM/DL (32-36); Mean Corpuscular Hemoglobin 33 PG (27-34); Mean Corpuscular Volume 104.8 FL (87-102); Mean Platelet Volume 13.7 FL (9.6-12.0); Monocytes % 7.9 % (1.7-12.7); Neutrophils # 10.3 10*3/uL (1.4-7.4); Neutrophils % 82.8 % (38.7-73.9); Platelet Count 113 T/CUMM (130-400); Red Blood Count 2.94 MC/CUMM (3.8-5.5); Red Cell Distribution Width 17.2 % (9.3-17.3); White Blood Count 12.4 T/CUMM (4-12)
[2017-10-25 06:56] LABS: Calcium 8.8 MG/DL (8.5-10.1); Osmolality,Calculated 291.4 MOS/KG (273-304); Potassium 4.4 MMOL/L (3.5-5.1)
[2017-10-25 08:33] LABS: INR 1.3; PT Patient Result 13.4 SECS
[2017-10-25] MEDS: GABAPENTIN 300 MG CAPSULE PO SCH ×2 (09:11→21:57)
[2017-10-25] MEDS: levETIRAcetam 500 MG TABLET PO SCH ×2 (09:11→21:56)
[2017-10-25] MEDS: PANTOPRAZOLE 40 MG TABLET PO SCH (09:11)
[2017-10-25] MEDS: predniSONE 20 MG TABLET PO SCH (09:11)
[2017-10-25] MEDS: CARVEDILOL 25 MG TABLET PO SCH ×2 (09:11→21:57)
[2017-10-25] MEDS: OLMESARTAN 20 MG TABLET PO SCH (09:11)
[2017-10-25] MEDS: FUROSEMIDE 40 MG/4 ML VIAL IV SCH ×2 (09:11→16:33)
[2017-10-25] MEDS: POTASSIUM CHLORIDE 20 MEQ TABLET PO SCH (09:11)
[2017-10-25] MEDS: amLODIPine 5 MG TABLET PO SCH (09:11)
[2017-10-25] MEDS: ALLOPURINOL 100 MG TABLET PO SCH (09:11)
[2017-10-25] MEDS: LEVOFLOXACIN INJ 250 MG in PREMIX 1 EACH IV SCH (17:04)
[2017-10-25] MEDS: WARFARIN 3 MG TABLET PO SCH (17:04)
[2017-10-25] MEDS: ATORVASTATIN 40 MG TABLET PO SCH (21:57)
[2017-10-25] MEDS: cefTRIAXone 1,000 MG in SYRINGE 1 EACH IV SCH (21:57)
[2017-10-26 06:34] LABS: Basophils % 0.1 % (0.0-0.8); Hematocrit 26.2 VOL% (35.7-47.0); Hemoglobin 8.6 GM/DL (12.0-16.0); Immature Granulocytes % 0.9 %; Immature Granulocytes Absolute 0.09 #; Lymphocytes # 1.3 10*3/uL (1.4-4.0); Lymphocytes % 12.4 % (21.3-54.2); Mean Corpuscular HGB Conc 32.8 GM/DL (32-36); Mean Corpuscular Hemoglobin 34 PG (27-34); Mean Platelet Volume 13.9 FL (9.6-12.0); Monocytes # 1.1 10*3/uL (0.11-0.8); Monocytes % 10.3 % (1.7-12.7); Neutrophils % 76.3 % (38.7-73.9); Platelet Count 102 T/CUMM (130-400); Red Blood Count 2.52 MC/CUMM (3.8-5.5); Red Cell Distribution Width 17.4 % (9.3-17.3); White Blood Count 10.5 T/CUMM (4-12)
[2017-10-26] MEDS: LEVOTHYROXINE 25 MCG TABLET PO SCH (06:38)
[2017-10-26 06:40] LABS: INR 1.3
[2017-10-26 07:04] LABS: Alanine Aminotransferase 12 U/L (13-56); Albumin 2.9 G/DL (3.4-5.0); Alkaline Phosphatase 94 U/L (45-117); Aspartate Amino Transferase 14 U/L (0-37); Bilirubin,Total < 0.39 MG/DL (0.2-1.0); Blood Urea Nitrogen 59 MG/DL (7-18); Calcium 8.2 MG/DL (8.5-10.1); Glucose 123 MG/DL (74-106); Osmolality,Calculated 300.1 MOS/KG (273-304); Potassium 4.3 MMOL/L (3.5-5.1); Sodium 142 MMOL/L (136-145); Total Protein 5.6 G/DL (6.4-8.3)
[2017-10-26] MEDS ORDERED: SODIUM CHLORIDE 0.9% 1,000 ML IV ONE (08:23)
[2017-10-26] MEDS: FUROSEMIDE 40 MG/4 ML VIAL IV SCH (08:37)
[2017-10-26] MEDS: amLODIPine 5 MG TABLET PO SCH (08:39)
[2017-10-26] MEDS: PANTOPRAZOLE 40 MG TABLET PO SCH (08:39)
[2017-10-26] MEDS: levETIRAcetam 500 MG TABLET PO SCH ×2 (08:39→20:42)
[2017-10-26] MEDS: predniSONE 20 MG TABLET PO SCH (08:39)
[2017-10-26] MEDS: POTASSIUM CHLORIDE 20 MEQ TABLET PO SCH (08:39)
[2017-10-26] MEDS: OLMESARTAN 20 MG TABLET PO SCH (08:39)
[2017-10-26] MEDS: ALLOPURINOL 100 MG TABLET PO SCH (08:39)
[2017-10-26] MEDS: GABAPENTIN 300 MG CAPSULE PO SCH ×2 (08:39→20:42)
[2017-10-26] MEDS: CARVEDILOL 25 MG TABLET PO SCH ×2 (08:39→20:42)
[2017-10-26] MEDS: LEVOFLOXACIN INJ 250 MG in PREMIX 1 EACH IV SCH (18:28)
[2017-10-26] MEDS: WARFARIN 3 MG TABLET PO SCH (18:28)
[2017-10-26] MEDS: ATORVASTATIN 40 MG TABLET PO SCH (20:42)
[2017-10-26] MEDS: cefTRIAXone 1,000 MG in SYRINGE 1 EACH IV SCH (20:45)
[2017-10-27 05:41] LABS: Albumin 2.9 G/DL (3.4-5.0); Bilirubin,Total 0.4 MG/DL (0.2-1.0); Calcium 8.2 MG/DL (8.5-10.1); Osmolality,Calculated 302.8 MOS/KG (273-304); Potassium 4.6 MMOL/L (3.5-5.1); Total Protein 5.3 G/DL (6.4-8.3)
[2017-10-27 06:13] LABS: Basophils % 0.1 % (0.0-0.8); Hematocrit 26.3 VOL% (35.7-47.0); Hemoglobin 8.5 GM/DL (12.0-16.0); Immature Granulocytes % 2.1 %; Immature Granulocytes Absolute 0.19 #; Lymphocytes % 11.6 % (21.3-54.2); Mean Corpuscular HGB Conc 32.3 GM/DL (32-36); Mean Corpuscular Hemoglobin 34 PG (27-34); Mean Corpuscular Volume 104.8 FL (87-102); Mean Platelet Volume 13.8 FL (9.6-12.0); Monocytes # 1.1 10*3/uL (0.11-0.8); Monocytes % 11.7 % (1.7-12.7); NRBC # 0.02 10*3/uL; Neutrophils # 6.7 10*3/uL (1.4-7.4); Neutrophils % 74.5 % (38.7-73.9); Platelet Count 98 T/CUMM (130-400); Red Blood Count 2.51 MC/CUMM (3.8-5.5); Red Cell Distribution Width 17.3 % (9.3-17.3)
[2017-10-27] MEDS: LEVOTHYROXINE 25 MCG TABLET PO SCH (06:14)
[2017-10-27 06:21] LABS: Giant Platelets Few; Hypochromasia Slight; Ovalocytes Slight; Platelet Estimate Decreased
[2017-10-27 07:15] VITALS: BP 97/48
[2017-10-27] MEDS: OLMESARTAN 20 MG TABLET PO SCH (08:35)
[2017-10-27] MEDS: ALLOPURINOL 100 MG TABLET PO SCH (08:36)
[2017-10-27] MEDS: GABAPENTIN 300 MG CAPSULE PO SCH (08:36)
[2017-10-27] MEDS: PANTOPRAZOLE 40 MG TABLET PO SCH (08:36)
[2017-10-27] MEDS: levETIRAcetam 500 MG TABLET PO SCH (08:36)
[2017-10-27] MEDS: CARVEDILOL 25 MG TABLET PO SCH (08:36)
[2017-10-27] MEDS: amLODIPine 5 MG TABLET PO SCH (08:36)
[2017-10-27] MEDS: predniSONE 20 MG TABLET PO SCH (08:36)
[2017-10-27] MEDS: POTASSIUM CHLORIDE 20 MEQ TABLET PO SCH (08:36)
== END 2017-10-27 10:15 | disposition home health service (06) | DRG 194 ==
LOC: N.ED 15:31 → N.EDINP 17:58 → N.5E 20:20
PROVIDERS: ADMIT Internal Medicine; ATTEND Internal Medicine

== ENCOUNTER 2018-08-01 13:28 | Inpatient (IN) ==
[2018-08-01] MEDS ORDERED: ALBUTEROL/IPRATROPIUM 3 ML NEB RESP TX STA (14:23)
[2018-08-01] MEDS ORDERED: FUROSEMIDE 100 MG/10 ML VIAL IV STA (14:30)
[2018-08-01 14:39] LABS: Eosinophils # 0.3 10*3/uL (0.0-0.87); Eosinophils % 7.9 % (0.00-10.9); Hematocrit 34.8 VOL% (35.7-47.0); Hemoglobin 10.7 GM/DL (12.0-16.0); Immature Granulocytes % 0.3 %; Immature Granulocytes Absolute 0.01 #; Lymphocytes # 0.6 10*3/uL (1.4-4.0); Lymphocytes % 16.9 % (21.3-54.2); Mean Corpuscular HGB Conc 30.7 GM/DL (32-36); Mean Corpuscular Hemoglobin 36 PG (27-34); Mean Corpuscular Volume 115.6 FL (87-102); Monocytes # 0.5 10*3/uL (0.11-0.8); Monocytes % 12.5 % (1.7-12.7); Neutrophils # 2.3 10*3/uL (1.4-7.4); Neutrophils % 62.4 % (38.7-73.9); Platelet Count 42 T/CUMM (130-400); Red Blood Count 3.01 MC/CUMM (3.8-5.5); Red Cell Distribution Width 15.2 % (9.3-17.3); White Blood Count 3.7 T/CUMM (4-12)
[2018-08-01 14:54] LABS: Albumin 2.9 G/DL (3.4-5.0); Bilirubin,Total 0.6 MG/DL (0.2-1.0); Calcium 8.5 MG/DL (8.5-10.1); Osmolality,Calculated 300.6 MOS/KG (273-304); Potassium 4.3 MMOL/L (3.5-5.1); Total Protein 6.8 G/DL (6.4-8.3)
[2018-08-01 15:03] LABS: Platelet Estimate Decreased
[2018-08-01 17:11] LABS: INR 1.7; PT Patient Result 18.7 SECS
[2018-08-01] MEDS ORDERED: ONDANSETRON 4 MG/2 ML VIAL IV PRN (17:20)
[2018-08-01 17:48] LABS: Apearance,Urine CLEAR (Clear); Bilirubin,Urine Negative (Negative); Blood, Urine Negative (Negative); Glucose,Urine (UA) Negative (Negative); Hyaline Casts,Urine 7 /LPF (0-3); Ketones,Urine Negative (Negative); Nitrite,Urine Negative (Negative); Protein,Urine Negative; RBC,Urine <1 /HPF (0-4); Urine Color Yellow (Yellow); Urine Specific Gravity 1.006 (1.001-1.035); Urine Urobilinogen < 2.0 EU/DL (0.2-1.0); WBC,Urine <1 /HPF (0-6)
[2018-08-01] MEDS ORDERED: ACETAMINOPHEN 500 MG TABLET PO PRN (19:23)
[2018-08-01] MEDS: ALBUTEROL/IPRATROPIUM 3 ML NEB RESP TX PRN (22:13)
[2018-08-01] MEDS: FUROSEMIDE 40 MG/4 ML VIAL IV SCH (22:16)
[2018-08-01] MEDS: HEPARIN DRIP 25,000 UNITS/500 ML PREMIX IV SCH (22:21)
[2018-08-01] MEDS: WARFARIN 5 MG TABLET PO SCH (22:22)
[2018-08-01] MEDS: AMOXICILLIN/CLAV 500 MG TABLET PO SCH (22:22)
[2018-08-01] MEDS: ATORVASTATIN 40 MG TABLET PO SCH (22:22)
[2018-08-01] MEDS: CARVEDILOL 25 MG TABLET PO SCH (22:23)
[2018-08-02 00:02] LABS: Troponin I 0.363 NG/ML (0.00-0.045)
[2018-08-02 04:54] LABS: INR 1.6; PT Patient Result 17.7 SECS
[2018-08-02 04:59] LABS: Basophils % 0.3 % (0.0-0.8); Eosinophils # 0.3 10*3/uL (0.0-0.87); Eosinophils % 7.9 % (0.00-10.9); Hematocrit 32.7 VOL% (35.7-47.0); Hemoglobin 9.9 GM/DL (12.0-16.0); Immature Granulocytes % 0.5 %; Immature Granulocytes Absolute 0.02 #; Lymphocytes # 0.6 10*3/uL (1.4-4.0); Lymphocytes % 14.7 % (21.3-54.2); Mean Corpuscular HGB Conc 30.3 GM/DL (32-36); Mean Corpuscular Hemoglobin 35 PG (27-34); Mean Corpuscular Volume 116.4 FL (87-102); Monocytes # 0.5 10*3/uL (0.11-0.8); Monocytes % 14.2 % (1.7-12.7); Neutrophils # 2.4 10*3/uL (1.4-7.4); Neutrophils % 62.4 % (38.7-73.9); Red Blood Count 2.81 MC/CUMM (3.8-5.5); Red Cell Distribution Width 14.8 % (9.3-17.3); White Blood Count 3.8 T/CUMM (4-12)
[2018-08-02 05:14] LABS: Platelet Count 37 T/CUMM (130-400)
[2018-08-02 05:23] LABS: Albumin 2.8 G/DL (3.4-5.0); Bilirubin,Total 1.2 MG/DL (0.2-1.0); Calcium 8.4 MG/DL (8.5-10.1); Osmolality,Calculated 301.6 MOS/KG (273-304); Risk Ratio 2.59; Total Protein 6.1 G/DL (6.4-8.3); VLDL CHOLESTEROL 14.6 MG/DL
[2018-08-02 05:48] LABS: Troponin I 0.357 NG/ML (0.00-0.045)
[2018-08-02] MEDS: LEVOTHYROXINE 25 MCG TABLET PO SCH (06:13)
[2018-08-02] MEDS: AMOXICILLIN/CLAV 500 MG TABLET PO SCH ×2 (09:20→20:39)
[2018-08-02] MEDS: CHOLECALCIFEROL 1,000 UNIT TABLET PO SCH (09:20)
[2018-08-02] MEDS: amLODIPine 10 MG TABLET PO SCH (09:20)
[2018-08-02] MEDS: CARVEDILOL 25 MG TABLET PO SCH ×2 (09:21→20:36)
[2018-08-02] MEDS: PANTOPRAZOLE 40 MG TABLET PO SCH (09:21)
[2018-08-02] MEDS: FUROSEMIDE 40 MG/4 ML VIAL IV SCH ×2 (09:21→15:42)
[2018-08-02] MEDS: LORATADINE 10 MG TABLET PO SCH (09:21)
[2018-08-02] MEDS: WARFARIN 5 MG TABLET PO SCH (18:36)
[2018-08-02 19:29] LABS: INR 1.7; PT Patient Result 18.4 SECS
[2018-08-02] MEDS: HEPARIN DRIP 25,000 UNITS/500 ML PREMIX IV SCH (20:28)
[2018-08-02] MEDS: ATORVASTATIN 40 MG TABLET PO SCH (20:37)
[2018-08-02 20:45] LABS: Partial Thromboplastin Time 117.9 SECS (0-40)
[2018-08-03 01:27] LABS: Eosinophils # 0.3 10*3/uL (0.0-0.87); Eosinophils % 7.4 % (0.00-10.9); Hematocrit 33.5 VOL% (35.7-47.0); Hemoglobin 10.2 GM/DL (12.0-16.0); Immature Granulocytes % 0.2 %; Immature Granulocytes Absolute 0.01 #; Lymphocytes # 0.8 10*3/uL (1.4-4.0); Lymphocytes % 19.8 % (21.3-54.2); Mean Corpuscular HGB Conc 30.4 GM/DL (32-36); Mean Corpuscular Hemoglobin 35 PG (27-34); Mean Corpuscular Volume 115.9 FL (87-102); Monocytes # 0.5 10*3/uL (0.11-0.8); Monocytes % 11.4 % (1.7-12.7); Neutrophils # 2.5 10*3/uL (1.4-7.4); Neutrophils % 61.2 % (38.7-73.9); Red Blood Count 2.89 MC/CUMM (3.8-5.5); Red Cell Distribution Width 14.9 % (9.3-17.3)
[2018-08-03 01:32] LABS: Platelet Count 39 T/CUMM (130-400)
[2018-08-03 01:33] LABS: INR 1.8; PT Patient Result 19.3 SECS
[2018-08-03 01:51] LABS: Calcium 8.1 MG/DL (8.5-10.1); Osmolality,Calculated 300.8 MOS/KG (273-304); Potassium 4.3 MMOL/L (3.5-5.1)
[2018-08-03] MEDS: HEPARIN DRIP 25,000 UNITS/500 ML PREMIX IV SCH (01:51)
[2018-08-03 02:00] LABS: Platelet Estimate Decreased
[2018-08-03] MEDS: ALBUTEROL/IPRATROPIUM 3 ML NEB RESP TX PRN (02:34)
[2018-08-03] MEDS: LEVOTHYROXINE 25 MCG TABLET PO SCH (06:04)
[2018-08-03] MEDS: CARVEDILOL 25 MG TABLET PO SCH (09:52)
[2018-08-03] MEDS: AMOXICILLIN/CLAV 500 MG TABLET PO SCH ×2 (09:52→20:54)
[2018-08-03] MEDS: PANTOPRAZOLE 40 MG TABLET PO SCH (09:52)
[2018-08-03] MEDS: amLODIPine 10 MG TABLET PO SCH (09:53)
[2018-08-03] MEDS: CHOLECALCIFEROL 1,000 UNIT TABLET PO SCH (09:53)
[2018-08-03] MEDS: LORATADINE 10 MG TABLET PO SCH (09:54)
[2018-08-03] MEDS: FUROSEMIDE 40 MG/4 ML VIAL IV SCH ×2 (09:59→15:20)
[2018-08-03] MEDS: ALBUTEROL/IPRATROPIUM 3 ML NEB RESP TX SCH ×3 (11:22→19:36)
[2018-08-03] MEDS ORDERED: FUROSEMIDE 20 MG/2 ML VIAL ONE (15:09)
[2018-08-03] MEDS: WARFARIN 5 MG TABLET PO SCH (17:50)
[2018-08-03] MEDS: ATORVASTATIN 40 MG TABLET PO SCH (20:54)
[2018-08-03] MEDS: CARVEDILOL 3.125 MG TABLET PO SCH (20:54)
[2018-08-04] MEDS: HEPARIN DRIP 25,000 UNITS/500 ML PREMIX IV SCH (00:13)
[2018-08-04] MEDS: guaiFENesin/CODEINE 5 ML LIQUID PO PRN (03:02)
[2018-08-04 05:09] LABS: Basophils % 0.6 % (0.0-0.8); Eosinophils # 0.3 10*3/uL (0.0-0.87); Hematocrit 32.6 VOL% (35.7-47.0); Hemoglobin 9.8 GM/DL (12.0-16.0); Immature Granulocytes % 0.6 %; Immature Granulocytes Absolute 0.02 #; Lymphocytes # 0.7 10*3/uL (1.4-4.0); Lymphocytes % 20.7 % (21.3-54.2); Mean Corpuscular HGB Conc 30.1 GM/DL (32-36); Mean Corpuscular Hemoglobin 35 PG (27-34); Monocytes # 0.4 10*3/uL (0.11-0.8); Monocytes % 12.1 % (1.7-12.7); Red Blood Count 2.81 MC/CUMM (3.8-5.5); Red Cell Distribution Width 14.6 % (9.3-17.3); White Blood Count 3.5 T/CUMM (4-12)
[2018-08-04 05:18] LABS: INR 2.4
[2018-08-04 05:21] LABS: Platelet Count 32 T/CUMM (130-400)
[2018-08-04 05:33] LABS: Calcium 8.1 MG/DL (8.5-10.1); Osmolality,Calculated 301.8 MOS/KG (273-304); Potassium 4.5 MMOL/L (3.5-5.1)
[2018-08-04 05:51] LABS: PT Patient Result 25.7 SECS
[2018-08-04] MEDS: LEVOTHYROXINE 25 MCG TABLET PO SCH (06:06)
[2018-08-04 06:18] LABS: Anisocytosis 2+; Macrocytosis 2+; Ovalocytes Few; Platelet Estimate Decreased
[2018-08-04] MEDS: ALBUTEROL/IPRATROPIUM 3 ML NEB RESP TX SCH ×4 (07:21→20:00)
[2018-08-04] MEDS: PANTOPRAZOLE 40 MG TABLET PO SCH (08:26)
[2018-08-04] MEDS: CHOLECALCIFEROL 1,000 UNIT TABLET PO SCH (08:26)
[2018-08-04] MEDS: LORATADINE 10 MG TABLET PO SCH (08:26)
[2018-08-04] MEDS: FUROSEMIDE 40 MG TABLET PO SCH ×2 (08:26→15:06)
[2018-08-04] MEDS: CARVEDILOL 3.125 MG TABLET PO SCH ×2 (08:27→22:26)
[2018-08-04] MEDS: AMOXICILLIN/CLAV 500 MG TABLET PO SCH ×2 (08:27→22:25)
[2018-08-04] MEDS: guaiFENesin/DM ER 600-30 MG TABLET PO PRN (10:34)
[2018-08-04] MEDS: WARFARIN 5 MG TABLET PO SCH (17:09)
[2018-08-04] MEDS: ATORVASTATIN 40 MG TABLET PO SCH (22:25)
[2018-08-05] MEDS: ACETAMINOPHEN 325 MG TABLET PO PRN (00:25)
[2018-08-05 00:49] LABS: Basophils % 0.2 % (0.0-0.8); Eosinophils # 0.3 10*3/uL (0.0-0.87); Eosinophils % 7.3 % (0.00-10.9); Hematocrit 32.3 VOL% (35.7-47.0); Immature Granulocytes % 0.5 %; Immature Granulocytes Absolute 0.02 #; Lymphocytes # 0.7 10*3/uL (1.4-4.0); Lymphocytes % 16.9 % (21.3-54.2); Mean Corpuscular Hemoglobin 36 PG (27-34); Mean Corpuscular Volume 114.9 FL (87-102); Monocytes # 0.6 10*3/uL (0.11-0.8); Monocytes % 13.2 % (1.7-12.7); Neutrophils # 2.7 10*3/uL (1.4-7.4); Neutrophils % 61.9 % (38.7-73.9); Red Blood Count 2.81 MC/CUMM (3.8-5.5); Red Cell Distribution Width 14.6 % (9.3-17.3); White Blood Count 4.4 T/CUMM (4-12)
[2018-08-05 00:50] LABS: Platelet Count 32 T/CUMM (130-400)
[2018-08-05 01:00] LABS: INR 2.9
[2018-08-05 01:01] LABS: PT Patient Result 30.7 SECS
[2018-08-05 01:09] LABS: Calcium 8.3 MG/DL (8.5-10.1); Osmolality,Calculated 301.8 MOS/KG (273-304); Potassium 4.5 MMOL/L (3.5-5.1)
[2018-08-05 01:30] LABS: Hypochromasia 1+; Platelet Estimate Decreased
[2018-08-05] MEDS: LEVOTHYROXINE 25 MCG TABLET PO SCH (05:37)
[2018-08-05] MEDS: ALBUTEROL/IPRATROPIUM 3 ML NEB RESP TX SCH ×4 (07:10→21:21)
[2018-08-05] MEDS: FUROSEMIDE 40 MG TABLET PO SCH ×2 (09:25→17:18)
[2018-08-05] MEDS: AMOXICILLIN/CLAV 500 MG TABLET PO SCH (09:25)
[2018-08-05] MEDS: LORATADINE 10 MG TABLET PO SCH (09:26)
[2018-08-05] MEDS: PANTOPRAZOLE 40 MG TABLET PO SCH (09:26)
[2018-08-05] MEDS: ERGOCALCIFEROL 50,000 UNIT CAPSULE PO SCH (09:26)
[2018-08-05] MEDS: CARVEDILOL 3.125 MG TABLET PO SCH ×2 (09:26→21:06)
[2018-08-05] MEDS: CHOLECALCIFEROL 1,000 UNIT TABLET PO SCH (09:32)
[2018-08-05] MEDS: WARFARIN 5 MG TABLET PO SCH (17:18)
[2018-08-05] MEDS: ATORVASTATIN 40 MG TABLET PO SCH (21:05)
[2018-08-06 03:29] LABS: Basophils % 0.3 % (0.0-0.8); Eosinophils # 0.4 10*3/uL (0.0-0.87); Eosinophils % 9.6 % (0.00-10.9); Hematocrit 33.7 VOL% (35.7-47.0); Hemoglobin 10.3 GM/DL (12.0-16.0); Immature Granulocytes % 0.5 %; Immature Granulocytes Absolute 0.02 #; Lymphocytes # 0.8 10*3/uL (1.4-4.0); Mean Corpuscular HGB Conc 30.6 GM/DL (32-36); Mean Corpuscular Hemoglobin 35 PG (27-34); Mean Corpuscular Volume 113.5 FL (87-102); Mean Platelet Volume 15.5 FL (9.6-12.0); Monocytes # 0.5 10*3/uL (0.11-0.8); Monocytes % 13.7 % (1.7-12.7); Neutrophils % 54.9 % (38.7-73.9); Red Blood Count 2.97 MC/CUMM (3.8-5.5); Red Cell Distribution Width 14.4 % (9.3-17.3); White Blood Count 3.7 T/CUMM (4-12)
[2018-08-06 03:33] LABS: Platelet Count 35 T/CUMM (130-400)
[2018-08-06 03:34] LABS: INR 3.1
[2018-08-06 03:36] LABS: PT Patient Result 33.6 SECS
[2018-08-06 03:56] LABS: Albumin 2.7 G/DL (3.4-5.0); Bilirubin,Total 0.6 MG/DL (0.2-1.0); Calcium 8.7 MG/DL (8.5-10.1); Osmolality,Calculated 302.8 MOS/KG (273-304); Potassium 4.5 MMOL/L (3.5-5.1); Total Protein 6.6 G/DL (6.4-8.3)
[2018-08-06 04:04] LABS: Platelet Estimate Decreased
[2018-08-06] MEDS: LEVOTHYROXINE 25 MCG TABLET PO SCH (05:40)
[2018-08-06] MEDS: guaiFENesin/CODEINE 5 ML LIQUID PO PRN (05:40)
[2018-08-06] MEDS: ALBUTEROL/IPRATROPIUM 3 ML NEB RESP TX SCH ×4 (08:15→19:19)
[2018-08-06] MEDS: FUROSEMIDE 40 MG TABLET PO SCH ×2 (09:38→15:41)
[2018-08-06] MEDS: CHOLECALCIFEROL 1,000 UNIT TABLET PO SCH (09:38)
[2018-08-06] MEDS: LORATADINE 10 MG TABLET PO SCH (09:38)
[2018-08-06] MEDS: PANTOPRAZOLE 40 MG TABLET PO SCH (09:38)
[2018-08-06] MEDS: CARVEDILOL 3.125 MG TABLET PO SCH ×2 (09:38→21:47)
[2018-08-06] MEDS: SKIN HEALING OINT (AQUAPHOR) 50 GM TUBE TOP PRN (09:39)
[2018-08-06] MEDS: guaiFENesin/DM ER 600-30 MG TABLET PO PRN (15:41)
[2018-08-06] MEDS: ATORVASTATIN 40 MG TABLET PO SCH (21:46)
[2018-08-07 04:37] LABS: PT Patient Result 32.1 SECS
[2018-08-07] MEDS: LEVOTHYROXINE 25 MCG TABLET PO SCH (05:30)
[2018-08-07] MEDS: ALBUTEROL/IPRATROPIUM 3 ML NEB RESP TX SCH ×4 (08:10→19:16)
[2018-08-07] MEDS: CHOLECALCIFEROL 1,000 UNIT TABLET PO SCH (08:44)
[2018-08-07] MEDS: LORATADINE 10 MG TABLET PO SCH (08:44)
[2018-08-07] MEDS: CARVEDILOL 3.125 MG TABLET PO SCH ×2 (08:44→20:38)
[2018-08-07] MEDS: PANTOPRAZOLE 40 MG TABLET PO SCH (08:44)
[2018-08-07] MEDS: FUROSEMIDE 40 MG TABLET PO SCH ×2 (08:44→16:16)
[2018-08-07] MEDS ORDERED: VANCOMYCIN 50 MG/ML 60 ML/BOTTLE PO SCH (13:45)
[2018-08-07 14:17] LABS: Basophils % 0.2 % (0.0-0.8); Eosinophils # 0.3 10*3/uL (0.0-0.87); Eosinophils % 7.3 % (0.00-10.9); Hematocrit 34.4 VOL% (35.7-47.0); Hemoglobin 10.5 GM/DL (12.0-16.0); Immature Granulocytes % 0.4 %; Immature Granulocytes Absolute 0.02 #; Lymphocytes # 0.8 10*3/uL (1.4-4.0); Lymphocytes % 17.7 % (21.3-54.2); Mean Corpuscular HGB Conc 30.5 GM/DL (32-36); Mean Corpuscular Hemoglobin 35 PG (27-34); Mean Corpuscular Volume 115.1 FL (87-102); Monocytes # 0.6 10*3/uL (0.11-0.8); Monocytes % 12.9 % (1.7-12.7); Neutrophils # 2.9 10*3/uL (1.4-7.4); Neutrophils % 61.5 % (38.7-73.9); Red Blood Count 2.99 MC/CUMM (3.8-5.5); Red Cell Distribution Width 14.1 % (9.3-17.3); White Blood Count 4.6 T/CUMM (4-12)
[2018-08-07 14:20] LABS: Platelet Count 34 T/CUMM (130-400)
[2018-08-07 14:45] LABS: Platelet Estimate Decreased
[2018-08-07] MEDS: ATORVASTATIN 40 MG TABLET PO SCH (20:38)
[2018-08-07] MEDS: guaiFENesin/CODEINE 5 ML LIQUID PO PRN (22:35)
[2018-08-07] MEDS: ACETAMINOPHEN 325 MG TABLET PO PRN (22:35)
[2018-08-08 03:40] LABS: Basophils % 0.5 % (0.0-0.8); Eosinophils # 0.4 10*3/uL (0.0-0.87); Eosinophils % 9.6 % (0.00-10.9); Hematocrit 33.6 VOL% (35.7-47.0); Hemoglobin 10.3 GM/DL (12.0-16.0); Immature Granulocytes % 0.5 %; Immature Granulocytes Absolute 0.02 #; Lymphocytes # 0.8 10*3/uL (1.4-4.0); Lymphocytes % 20.1 % (21.3-54.2); Mean Corpuscular HGB Conc 30.7 GM/DL (32-36); Mean Corpuscular Hemoglobin 35 PG (27-34); Mean Corpuscular Volume 114.3 FL (87-102); Mean Platelet Volume 16.2 FL (9.6-12.0); Monocytes # 0.7 10*3/uL (0.11-0.8); Monocytes % 16.1 % (1.7-12.7); Neutrophils # 2.2 10*3/uL (1.4-7.4); Neutrophils % 53.2 % (38.7-73.9); Red Blood Count 2.94 MC/CUMM (3.8-5.5); Red Cell Distribution Width 14.2 % (9.3-17.3); White Blood Count 4.2 T/CUMM (4-12)
[2018-08-08 03:43] LABS: Platelet Count 36 T/CUMM (130-400)
[2018-08-08 03:53] LABS: Calcium 8.9 MG/DL (8.5-10.1); Osmolality,Calculated 296.1 MOS/KG (273-304); Potassium 4.5 MMOL/L (3.5-5.1)
[2018-08-08 04:08] LABS: INR 2.3
[2018-08-08 04:14] LABS: PT Patient Result 24.3 SECS
[2018-08-08 04:25] LABS: Eosinophils 12 % (0-10); Lymphocytes 26 % (20-55); Segmented Neutrophils 50 % (50-85)
[2018-08-08 04:29] LABS: Atypical Lymphocytes Few; Hypochromasia 1+; Platelet Estimate Decreased; Reactive Lymphocytes 1+
[2018-08-08 04:30] LABS: Total Cells Counted 100
[2018-08-08] MEDS: LEVOTHYROXINE 25 MCG TABLET PO SCH (05:55)
[2018-08-08] MEDS: ALBUTEROL/IPRATROPIUM 3 ML NEB RESP TX SCH ×4 (07:30→19:27)
[2018-08-08] MEDS: PANTOPRAZOLE 40 MG TABLET PO SCH (09:53)
[2018-08-08] MEDS: FUROSEMIDE 40 MG TABLET PO SCH ×2 (09:53→16:42)
[2018-08-08] MEDS: CARVEDILOL 3.125 MG TABLET PO SCH (09:53)
[2018-08-08] MEDS: CHOLECALCIFEROL 1,000 UNIT TABLET PO SCH ×2 (09:53→09:55)
[2018-08-08] MEDS: LORATADINE 10 MG TABLET PO SCH (09:53)
[2018-08-08] MEDS ORDERED: FUROSEMIDE 40 MG/4 ML VIAL IV ONE (11:03)
[2018-08-08] MEDS ORDERED: CARVEDILOL 3.125 MG TABLET PO ONE (11:05)
[2018-08-08] MEDS: CARVEDILOL 6.25 MG TABLET PO SCH (21:12)
[2018-08-08] MEDS: ATORVASTATIN 40 MG TABLET PO SCH (21:12)
[2018-08-09 04:44] LABS: Basophils % 0.5 % (0.0-0.8); Eosinophils # 0.4 10*3/uL (0.0-0.87); Eosinophils % 9.4 % (0.00-10.9); Hematocrit 32.3 VOL% (35.7-47.0); Hemoglobin 9.9 GM/DL (12.0-16.0); Immature Granulocytes % 0.5 %; Immature Granulocytes Absolute 0.02 #; Lymphocytes # 0.9 10*3/uL (1.4-4.0); Lymphocytes % 22.2 % (21.3-54.2); Mean Corpuscular HGB Conc 30.7 GM/DL (32-36); Mean Corpuscular Hemoglobin 35 PG (27-34); Mean Corpuscular Volume 113.7 FL (87-102); Monocytes # 0.6 10*3/uL (0.11-0.8); Monocytes % 15.6 % (1.7-12.7); Neutrophils # 2.1 10*3/uL (1.4-7.4); Neutrophils % 51.8 % (38.7-73.9); Red Blood Count 2.84 MC/CUMM (3.8-5.5); Red Cell Distribution Width 13.9 % (9.3-17.3); White Blood Count 4.1 T/CUMM (4-12)
[2018-08-09 04:48] LABS: INR 1.8; PT Patient Result 19.1 SECS
[2018-08-09 05:12] LABS: Calcium 8.7 MG/DL (8.5-10.1); Osmolality,Calculated 300.6 MOS/KG (273-304); Potassium 4.2 MMOL/L (3.5-5.1)
[2018-08-09] MEDS: LEVOTHYROXINE 25 MCG TABLET PO SCH (05:51)
[2018-08-09 06:00] LABS: Platelet Count 33 T/CUMM (130-400)
[2018-08-09 06:18] LABS: Band Neutrophils 7 % (0-10); Eosinophils 7 % (0-10); Hypochromasia Slight; Lymphocytes 22 % (20-55); Metamyelocytes 1 %; Nucleated Red Blood Cells 1 (0-5); Platelet Estimate Decreased; Segmented Neutrophils 49 % (50-85); Total Cells Counted 100
[2018-08-09] MEDS: ALBUTEROL/IPRATROPIUM 3 ML NEB RESP TX SCH ×4 (07:44→19:35)
[2018-08-09] MEDS ORDERED: HEPARIN 5,000 UNIT/1 ML VIAL ONE (09:49)
[2018-08-09] MEDS: PANTOPRAZOLE 40 MG TABLET PO SCH (11:13)
[2018-08-09] MEDS: CHOLECALCIFEROL 1,000 UNIT TABLET PO SCH (11:13)
[2018-08-09] MEDS: LORATADINE 10 MG TABLET PO SCH (11:13)
[2018-08-09] MEDS: CARVEDILOL 6.25 MG TABLET PO SCH ×2 (11:13→21:01)
[2018-08-09] MEDS: FUROSEMIDE 40 MG TABLET PO SCH ×2 (11:13→16:33)
[2018-08-09] MEDS ORDERED: WARFARIN 5 MG TABLET PO ONE (16:23)
[2018-08-09] MEDS: WARFARIN 5 MG TABLET PO SCH (17:04)
[2018-08-09] MEDS: ATORVASTATIN 40 MG TABLET PO SCH (21:01)
[2018-08-10 05:23] LABS: Basophils % 0.2 % (0.0-0.8); Eosinophils # 0.4 10*3/uL (0.0-0.87); Eosinophils % 9.7 % (0.00-10.9); Hematocrit 32.7 VOL% (35.7-47.0); Hemoglobin 9.8 GM/DL (12.0-16.0); Immature Granulocytes % 0.2 %; Immature Granulocytes Absolute 0.01 #; Lymphocytes # 0.8 10*3/uL (1.4-4.0); Lymphocytes % 19.2 % (21.3-54.2); Mean Corpuscular Hemoglobin 34 PG (27-34); Mean Corpuscular Volume 114.3 FL (87-102); Monocytes # 0.6 10*3/uL (0.11-0.8); Neutrophils # 2.3 10*3/uL (1.4-7.4); Neutrophils % 55.7 % (38.7-73.9); Red Blood Count 2.86 MC/CUMM (3.8-5.5); Red Cell Distribution Width 13.8 % (9.3-17.3); White Blood Count 4.2 T/CUMM (4-12)
[2018-08-10 05:29] LABS: Platelet Count 33 T/CUMM (130-400)
[2018-08-10 05:44] LABS: Calcium 8.6 MG/DL (8.5-10.1); Osmolality,Calculated 301.4 MOS/KG (273-304); Potassium 4.2 MMOL/L (3.5-5.1)
[2018-08-10 05:49] LABS: INR 1.6; PT Patient Result 17.1 SECS
[2018-08-10] MEDS: LEVOTHYROXINE 25 MCG TABLET PO SCH (05:56)
[2018-08-10] MEDS: ALBUTEROL/IPRATROPIUM 3 ML NEB RESP TX SCH ×4 (07:15→19:16)
[2018-08-10] MEDS: LORATADINE 10 MG TABLET PO SCH (08:19)
[2018-08-10] MEDS: CARVEDILOL 6.25 MG TABLET PO SCH ×2 (08:19→20:02)
[2018-08-10] MEDS: FUROSEMIDE 40 MG TABLET PO SCH ×2 (08:19→17:13)
[2018-08-10] MEDS: CHOLECALCIFEROL 1,000 UNIT TABLET PO SCH (08:19)
[2018-08-10] MEDS: PANTOPRAZOLE 40 MG TABLET PO SCH (08:19)
[2018-08-10] MEDS: SKIN HEALING OINT (AQUAPHOR) 50 GM TUBE TOP PRN (08:20)
[2018-08-10 09:04] LABS: Eosinophils 15 % (0-10); Hypochromasia 1+; Lymphocytes 16 % (20-55); Ovalocytes Few; Platelet Estimate Decreased; Polychromasia Slight; Segmented Neutrophils 56 % (50-85); Total Cells Counted 100
[2018-08-10] MEDS ORDERED: ENOXAPARIN 80 MG/0.8 ML SYRINGE SUBCUT ONE (13:30)
[2018-08-10] MEDS ORDERED: FUROSEMIDE 40 MG/4 ML VIAL IV ONE (13:30)
[2018-08-10] MEDS: WARFARIN 5 MG TABLET PO SCH (17:13)
[2018-08-10] MEDS: ATORVASTATIN 40 MG TABLET PO SCH (20:02)
[2018-08-11 05:04] LABS: Basophils % 0.7 % (0.0-0.8); Eosinophils # 0.4 10*3/uL (0.0-0.87); Eosinophils % 9.5 % (0.00-10.9); Hematocrit 33.4 VOL% (35.7-47.0); Hemoglobin 10.3 GM/DL (12.0-16.0); Immature Granulocytes % 0.5 %; Immature Granulocytes Absolute 0.02 #; Mean Corpuscular HGB Conc 30.8 GM/DL (32-36); Mean Corpuscular Hemoglobin 34 PG (27-34); Mean Corpuscular Volume 111.3 FL (87-102); Monocytes # 0.7 10*3/uL (0.11-0.8); Neutrophils # 2.1 10*3/uL (1.4-7.4); Neutrophils % 49.3 % (38.7-73.9); Red Cell Distribution Width 13.7 % (9.3-17.3); White Blood Count 4.3 T/CUMM (4-12)
[2018-08-11 05:07] LABS: INR 1.9; PT Patient Result 20.7 SECS
[2018-08-11 05:36] LABS: Platelet Count 36 T/CUMM (130-400)
[2018-08-11 05:37] LABS: Calcium 8.7 MG/DL (8.5-10.1); Osmolality,Calculated 298.6 MOS/KG (273-304); Potassium 3.7 MMOL/L (3.5-5.1)
[2018-08-11] MEDS: LEVOTHYROXINE 25 MCG TABLET PO SCH (05:59)
[2018-08-11] MEDS: ALBUTEROL/IPRATROPIUM 3 ML NEB RESP TX SCH ×4 (07:11→18:53)
[2018-08-11 07:31] LABS: Eosinophils 6 % (0-10); Lymphocytes 26 % (20-55); Segmented Neutrophils 56 % (50-85)
[2018-08-11 07:32] LABS: Atypical Lymphocytes Few; Hypochromasia 1+; Platelet Estimate Decreased
[2018-08-11 07:33] LABS: Total Cells Counted 100
[2018-08-11] MEDS: FUROSEMIDE 40 MG TABLET PO SCH ×2 (09:17→17:16)
[2018-08-11] MEDS: PANTOPRAZOLE 40 MG TABLET PO SCH (09:17)
[2018-08-11] MEDS: LORATADINE 10 MG TABLET PO SCH (09:17)
[2018-08-11] MEDS: CARVEDILOL 6.25 MG TABLET PO SCH ×2 (09:17→20:51)
[2018-08-11] MEDS: CHOLECALCIFEROL 1,000 UNIT TABLET PO SCH (09:25)
[2018-08-11] MEDS ORDERED: ENOXAPARIN 60 MG/0.6 ML SYRINGE SUBCUT ONE (11:04)
[2018-08-11] MEDS: ACETAMINOPHEN 325 MG TABLET PO PRN (11:19)
[2018-08-11] MEDS: WARFARIN 5 MG TABLET PO SCH (17:37)
[2018-08-11] MEDS: ATORVASTATIN 40 MG TABLET PO SCH (20:51)
[2018-08-12] MEDS: LEVOTHYROXINE 25 MCG TABLET PO SCH (05:29)
[2018-08-12 05:33] LABS: Basophils % 0.5 % (0.0-0.8); Eosinophils # 0.4 10*3/uL (0.0-0.87); Eosinophils % 8.5 % (0.00-10.9); Hematocrit 32.8 VOL% (35.7-47.0); Hemoglobin 10.1 GM/DL (12.0-16.0); Immature Granulocytes % 0.7 %; Immature Granulocytes Absolute 0.03 #; Lymphocytes # 0.9 10*3/uL (1.4-4.0); Lymphocytes % 20.9 % (21.3-54.2); Mean Corpuscular HGB Conc 30.8 GM/DL (32-36); Mean Corpuscular Hemoglobin 35 PG (27-34); Mean Corpuscular Volume 113.1 FL (87-102); Monocytes # 0.6 10*3/uL (0.11-0.8); Monocytes % 13.1 % (1.7-12.7); Neutrophils # 2.4 10*3/uL (1.4-7.4); Neutrophils % 56.3 % (38.7-73.9); Red Cell Distribution Width 13.5 % (9.3-17.3); White Blood Count 4.3 T/CUMM (4-12)
[2018-08-12 05:44] LABS: Platelet Count 30 T/CUMM (130-400)
[2018-08-12 05:45] LABS: INR 2.1
[2018-08-12 06:02] LABS: Eosinophils 4 % (0-10); Hypochromasia 1+; Lymphocytes 21 % (20-55); PT Patient Result 22.3 SECS; Platelet Estimate Decreased; Segmented Neutrophils 57 % (50-85); Total Cells Counted 100
[2018-08-12 06:03] LABS: Atypical Lymphocytes Few
[2018-08-12 06:15] LABS: Calcium 8.6 MG/DL (8.5-10.1); Osmolality,Calculated 296.7 MOS/KG (273-304); Potassium 3.9 MMOL/L (3.5-5.1)
[2018-08-12] MEDS: ALBUTEROL/IPRATROPIUM 3 ML NEB RESP TX SCH ×4 (07:10→20:17)
[2018-08-12] MEDS: FUROSEMIDE 40 MG TABLET PO SCH (10:04)
[2018-08-12] MEDS: ERGOCALCIFEROL 50,000 UNIT CAPSULE PO SCH (10:05)
[2018-08-12] MEDS: PANTOPRAZOLE 40 MG TABLET PO SCH (10:05)
[2018-08-12] MEDS: LORATADINE 10 MG TABLET PO SCH (10:05)
[2018-08-12] MEDS: CARVEDILOL 6.25 MG TABLET PO SCH ×2 (10:05→21:55)
[2018-08-12] MEDS: CHOLECALCIFEROL 1,000 UNIT TABLET PO SCH (10:26)
[2018-08-12] MEDS: FUROSEMIDE 20 MG TABLET PO SCH (17:20)
[2018-08-12] MEDS: WARFARIN 5 MG TABLET PO SCH (17:20)
[2018-08-12] MEDS: ATORVASTATIN 40 MG TABLET PO SCH (21:54)
[2018-08-13 05:06] LABS: Basophils % 0.3 % (0.0-0.8); Eosinophils # 0.3 10*3/uL (0.0-0.87); Eosinophils % 8.5 % (0.00-10.9); Hematocrit 31.7 VOL% (35.7-47.0); Hemoglobin 9.7 GM/DL (12.0-16.0); Immature Granulocytes % 0.3 %; Immature Granulocytes Absolute 0.01 #; Lymphocytes % 24.8 % (21.3-54.2); Mean Corpuscular HGB Conc 30.6 GM/DL (32-36); Mean Corpuscular Hemoglobin 35 PG (27-34); Mean Corpuscular Volume 112.8 FL (87-102); Monocytes # 0.6 10*3/uL (0.11-0.8); Monocytes % 14.8 % (1.7-12.7); Neutrophils # 2.1 10*3/uL (1.4-7.4); Neutrophils % 51.3 % (38.7-73.9); Red Blood Count 2.81 MC/CUMM (3.8-5.5); Red Cell Distribution Width 13.4 % (9.3-17.3)
[2018-08-13 05:17] LABS: Platelet Count 37 T/CUMM (130-400)
[2018-08-13 05:22] LABS: INR 2.1
[2018-08-13 05:23] LABS: Calcium 8.5 MG/DL (8.5-10.1); Osmolality,Calculated 296.7 MOS/KG (273-304); PT Patient Result 22.3 SECS; Potassium 3.6 MMOL/L (3.5-5.1)
[2018-08-13 05:26] LABS: Giant Platelets Few; Hypochromasia 1+; Platelet Estimate Decreased
[2018-08-13] MEDS: ALBUTEROL/IPRATROPIUM 3 ML NEB RESP TX SCH ×4 (07:32→19:12)
[2018-08-13] MEDS ORDERED: IMMUNE GLOBULIN 10% 40 GM in PREMIX 1 EACH IV ONE (09:00)
[2018-08-13] MEDS ORDERED: MAGNESIUM SULF RIDER 2 GM in PREMIX 1 EACH IV PRN (09:49)
[2018-08-13] MEDS ORDERED: MAGNESIUM SULF RIDER 4 GM in PREMIX 1 EACH IV PRN (09:49)
[2018-08-13] MEDS: PANTOPRAZOLE 40 MG TABLET PO SCH (09:50)
[2018-08-13] MEDS: LEVOTHYROXINE 25 MCG TABLET PO SCH (09:51)
[2018-08-13] MEDS: CARVEDILOL 6.25 MG TABLET PO SCH ×2 (09:51→21:02)
[2018-08-13] MEDS: FUROSEMIDE 20 MG TABLET PO SCH ×2 (09:51→16:55)
[2018-08-13] MEDS: LORATADINE 10 MG TABLET PO SCH (09:52)
[2018-08-13] MEDS: CHOLECALCIFEROL 1,000 UNIT TABLET PO SCH (11:09)
[2018-08-13] MEDS: WARFARIN 5 MG TABLET PO SCH ×2 (16:55→17:58)
[2018-08-13] MEDS: ATORVASTATIN 40 MG TABLET PO SCH (21:01)
[2018-08-14 05:11] LABS: Basophils % 0.5 % (0.0-0.8); Eosinophils # 0.3 10*3/uL (0.0-0.87); Eosinophils % 8.4 % (0.00-10.9); Hematocrit 30.8 VOL% (35.7-47.0); Hemoglobin 9.4 GM/DL (12.0-16.0); Immature Granulocytes % 0.5 %; Immature Granulocytes Absolute 0.02 #; Lymphocytes % 24.4 % (21.3-54.2); Mean Corpuscular HGB Conc 30.5 GM/DL (32-36); Mean Corpuscular Hemoglobin 34 PG (27-34); Mean Corpuscular Volume 112.8 FL (87-102); Monocytes # 0.5 10*3/uL (0.11-0.8); Monocytes % 13.5 % (1.7-12.7); Neutrophils # 2.1 10*3/uL (1.4-7.4); Neutrophils % 52.7 % (38.7-73.9); Red Blood Count 2.73 MC/CUMM (3.8-5.5); Red Cell Distribution Width 13.6 % (9.3-17.3); White Blood Count 3.9 T/CUMM (4-12)
[2018-08-14 05:21] LABS: Platelet Count 30 T/CUMM (130-400)
[2018-08-14 05:35] LABS: Calcium 8.4 MG/DL (8.5-10.1); Potassium 3.7 MMOL/L (3.5-5.1)
[2018-08-14 05:38] LABS: Eosinophils 11 % (0-10); Hypochromasia 1+; Lymphocytes 19 % (20-55); Ovalocytes Slight; Platelet Estimate Decreased; Segmented Neutrophils 60 % (50-85); Total Cells Counted 100
[2018-08-14 05:42] LABS: PT Patient Result 22.1 SECS
[2018-08-14] MEDS: LEVOTHYROXINE 25 MCG TABLET PO SCH (06:22)
[2018-08-14] MEDS: ALBUTEROL/IPRATROPIUM 3 ML NEB RESP TX SCH ×5 (07:30→19:24)
[2018-08-14] MEDS ORDERED: IMMUNE GLOBULIN 10% 40 GM in PREMIX 1 EACH IV ONE (07:39)
[2018-08-14] MEDS: FUROSEMIDE 20 MG TABLET PO SCH ×2 (08:55→17:21)
[2018-08-14] MEDS: LORATADINE 10 MG TABLET PO SCH (09:17)
[2018-08-14] MEDS: CARVEDILOL 6.25 MG TABLET PO SCH ×2 (09:17→21:35)
[2018-08-14] MEDS: PANTOPRAZOLE 40 MG TABLET PO SCH (09:18)
[2018-08-14] MEDS: CHOLECALCIFEROL 1,000 UNIT TABLET PO SCH (13:49)
[2018-08-14] MEDS: WARFARIN 5 MG TABLET PO SCH (17:21)
[2018-08-14] MEDS: ATORVASTATIN 40 MG TABLET PO SCH (21:35)
[2018-08-15 05:03] LABS: Basophils % 0.2 % (0.0-0.8); Eosinophils # 0.5 10*3/uL (0.0-0.87); Eosinophils % 9.8 % (0.00-10.9); Hematocrit 30.9 VOL% (35.7-47.0); Hemoglobin 9.5 GM/DL (12.0-16.0); Immature Granulocytes % 0.4 %; Immature Granulocytes Absolute 0.02 #; Lymphocytes # 0.8 10*3/uL (1.4-4.0); Lymphocytes % 17.2 % (21.3-54.2); Mean Corpuscular HGB Conc 30.7 GM/DL (32-36); Mean Corpuscular Hemoglobin 34 PG (27-34); Monocytes # 0.6 10*3/uL (0.11-0.8); Monocytes % 12.6 % (1.7-12.7); Neutrophils # 2.9 10*3/uL (1.4-7.4); Neutrophils % 59.8 % (38.7-73.9); Platelet Count 44 T/CUMM (130-400); Red Blood Count 2.76 MC/CUMM (3.8-5.5); Red Cell Distribution Width 13.5 % (9.3-17.3); White Blood Count 4.8 T/CUMM (4-12)
[2018-08-15 05:12] LABS: INR 1.9; PT Patient Result 20.4 SECS
[2018-08-15 05:26] LABS: Calcium 8.4 MG/DL (8.5-10.1); Osmolality,Calculated 290.1 MOS/KG (273-304); Potassium 3.6 MMOL/L (3.5-5.1)
[2018-08-15 05:38] LABS: Hypochromasia 1+; Platelet Estimate Decreased
[2018-08-15] MEDS: LEVOTHYROXINE 25 MCG TABLET PO SCH (06:05)
[2018-08-15] MEDS: ALBUTEROL/IPRATROPIUM 3 ML NEB RESP TX SCH (08:20)
[2018-08-15] MEDS: PANTOPRAZOLE 40 MG TABLET PO SCH (09:15)
[2018-08-15] MEDS: FUROSEMIDE 20 MG TABLET PO SCH (09:16)
[2018-08-15] MEDS: CARVEDILOL 6.25 MG TABLET PO SCH (09:16)
[2018-08-15] MEDS: LORATADINE 10 MG TABLET PO SCH (09:16)
[2018-08-15] MEDS: CHOLECALCIFEROL 1,000 UNIT TABLET PO SCH (10:40)
[2018-08-15 12:27] VITALS: BP 147/65
== END 2018-08-15 13:44 | disposition swing bed (61) | DRG 291 ==
LOC: EDBD → EDUNIT# → N.ED 13:28 → N.EDINP 17:18 → SUATTDRO 17:18 → N.TELES 19:23
PROVIDERS: ADMIT Internal Medicine Geriatric Medicine; ATTEND Internal Medicine

== ENCOUNTER 2018-10-05 12:27 | Inpatient (IN) ==
[2018-10-05] MEDS ORDERED: methylPREDNISolone SOD SUC 125 MG/2 ML VIAL IV STA (13:08)
[2018-10-05] MEDS ORDERED: ALBUTEROL/IPRATROPIUM 3 ML NEB RESP TX STA (13:08)
[2018-10-05] MEDS ORDERED: FUROSEMIDE 40 MG/4 ML VIAL IV STA (14:45)
[2018-10-05 14:58] LABS: Basophils % 0.3 % (0.0-0.8); Hematocrit 31.7 VOL% (35.7-47.0); Hemoglobin 9.8 GM/DL (12.0-16.0); Immature Granulocytes % 0.8 %; Immature Granulocytes Absolute 0.03 #; Lymphocytes # 0.7 10*3/uL (1.4-4.0); Lymphocytes % 18.9 % (21.3-54.2); Mean Corpuscular HGB Conc 30.9 GM/DL (32-36); Mean Corpuscular Hemoglobin 34 PG (27-34); Mean Corpuscular Volume 109.7 FL (87-102); Mean Platelet Volume 14.4 FL (9.6-12.0); Monocytes # 0.9 10*3/uL (0.11-0.8); Monocytes % 23.1 % (1.7-12.7); Neutrophils # 2.2 10*3/uL (1.4-7.4); Neutrophils % 56.9 % (38.7-73.9); Platelet Count 60 T/CUMM (130-400); Red Blood Count 2.89 MC/CUMM (3.8-5.5); Red Cell Distribution Width 15.3 % (9.3-17.3); White Blood Count 3.8 T/CUMM (4-12)
[2018-10-05 15:27] LABS: Albumin 3.4 G/DL (3.4-5.0); Osmolality,Calculated 280.5 MOS/KG (273-304); Total Protein 7.7 G/DL (6.4-8.3)
[2018-10-05] MEDS ORDERED: ONDANSETRON 4 MG/2 ML VIAL IV PRN (16:24)
[2018-10-05] MEDS ORDERED: ACETAMINOPHEN 325 MG TABLET PO PRN (16:24)
[2018-10-05] MEDS ORDERED: ALBUTEROL/IPRATROPIUM 3 ML NEB RESP TX PRN (16:30)
[2018-10-05] MEDS ORDERED: SKIN HEALING OINT (AQUAPHOR) 50 GM TUBE TOP PRN (16:30)
[2018-10-05 18:29] LABS: Band Neutrophils 1 % (0-10); Eosinophils 1 % (0-10); Lymphocytes 5 % (20-55); Platelet Estimate Normal; Segmented Neutrophils 83 % (50-85); Total Cells Counted 100
[2018-10-05 20:44] LABS: INR 2.7
[2018-10-05 20:45] LABS: PT Patient Result 28.7 SECS
[2018-10-05] MEDS: CARVEDILOL 12.5 MG TABLET PO SCH (22:19)
[2018-10-05] MEDS: ATORVASTATIN 80 MG TABLET PO SCH (22:19)
[2018-10-05] MEDS: OSELTAMIVIR 30 MG CAPSULE PO SCH (22:19)
[2018-10-06 05:34] LABS: Hematocrit 30.5 VOL% (35.7-47.0); Hemoglobin 9.4 GM/DL (12.0-16.0); Immature Granulocytes % 0.4 %; Immature Granulocytes Absolute 0.01 #; Lymphocytes # 0.6 10*3/uL (1.4-4.0); Lymphocytes % 22.7 % (21.3-54.2); Mean Corpuscular HGB Conc 30.8 GM/DL (32-36); Mean Corpuscular Hemoglobin 34 PG (27-34); Mean Corpuscular Volume 110.1 FL (87-102); Monocytes # 0.2 10*3/uL (0.11-0.8); Monocytes % 5.4 % (1.7-12.7); Neutrophils % 71.5 % (38.7-73.9); Red Blood Count 2.77 MC/CUMM (3.8-5.5); White Blood Count 2.8 T/CUMM (4-12)
[2018-10-06 05:39] LABS: Platelet Count 50 T/CUMM (130-400)
[2018-10-06] MEDS: LEVOTHYROXINE 50 MCG TABLET PO SCH (06:11)
[2018-10-06 06:13] LABS: B-Type Natriuretic Peptide 3364 PG/ML (2-100)
[2018-10-06 06:16] LABS: Calcium 8.2 MG/DL (8.5-10.1); Osmolality,Calculated 288.4 MOS/KG (273-304); Potassium 3.9 MMOL/L (3.5-5.1); Risk Ratio 2.14; Thyroid Stimulating Hormone 0.871 uIU/ml (0.358-3.74); VLDL CHOLESTEROL 13.6 MG/DL
[2018-10-06 06:33] LABS: Vitamin B12 871 PG/ML (211-911)
[2018-10-06 06:51] LABS: Ovalocytes Slight; Platelet Estimate Decreased; Polychromasia Slight; Schistocytes Slight
[2018-10-06] MEDS: CARVEDILOL 12.5 MG TABLET PO SCH ×2 (08:23→17:33)
[2018-10-06] MEDS: ALLOPURINOL 100 MG TABLET PO SCH (08:23)
[2018-10-06] MEDS: amLODIPine 10 MG TABLET PO SCH (08:23)
[2018-10-06] MEDS: PANTOPRAZOLE 40 MG TABLET PO SCH (08:23)
[2018-10-06] MEDS: CHOLECALCIFEROL 1,000 UNIT TABLET PO SCH (08:23)
[2018-10-06] MEDS: OLMESARTAN 20 MG TABLET PO SCH (08:23)
[2018-10-06] MEDS: OSELTAMIVIR 30 MG CAPSULE PO SCH ×2 (08:23→21:50)
[2018-10-06] MEDS: FUROSEMIDE 40 MG/4 ML VIAL IV SCH ×2 (08:23→17:33)
[2018-10-06 16:53] LABS: Apearance,Urine CLOUDY (Clear); Bacteria,Urine Occasional /HPF (Few); Bilirubin,Urine Negative (Negative); Blood, Urine Small mg/dL (Negative); Glucose,Urine (UA) Negative (Negative); Ketones,Urine Negative (Negative); Mucus,Urine Occasional /LPF (Occasional); Nitrite,Urine Negative (Negative); Protein,Urine Negative; RBC,Urine 1 /HPF (0-4); Squamous Epithelial Cell,Urine Occasional /HPF (0-10); Urine Color Yellow (Yellow); Urine Specific Gravity 1.013 (1.001-1.035); Urine Urobilinogen < 2.0 EU/DL (0.2-1.0); WBC,Urine 2 /HPF (0-6)
[2018-10-06] MEDS: WARFARIN 5 MG TABLET PO SCH (17:33)
[2018-10-06] MEDS: ATORVASTATIN 80 MG TABLET PO SCH (21:50)
[2018-10-07] MEDS: LEVOTHYROXINE 50 MCG TABLET PO SCH (05:56)
[2018-10-07 06:35] LABS: Hematocrit 30.4 VOL% (35.7-47.0); Hemoglobin 9.5 GM/DL (12.0-16.0); Immature Granulocytes % 0.6 %; Immature Granulocytes Absolute 0.03 #; Lymphocytes # 0.9 10*3/uL (1.4-4.0); Lymphocytes % 16.9 % (21.3-54.2); Mean Corpuscular HGB Conc 31.3 GM/DL (32-36); Mean Corpuscular Hemoglobin 34 PG (27-34); Mean Corpuscular Volume 110.1 FL (87-102); Monocytes # 0.6 10*3/uL (0.11-0.8); Monocytes % 11.8 % (1.7-12.7); Neutrophils # 3.8 10*3/uL (1.4-7.4); Neutrophils % 70.7 % (38.7-73.9); Platelet Count 51 T/CUMM (130-400); Red Blood Count 2.76 MC/CUMM (3.8-5.5); Red Cell Distribution Width 15.2 % (9.3-17.3); White Blood Count 5.3 T/CUMM (4-12)
[2018-10-07 07:10] LABS: Potassium 3.8 MMOL/L (3.5-5.1)
[2018-10-07 07:11] LABS: Calcium 8.1 MG/DL (8.5-10.1)
[2018-10-07 07:12] LABS: Osmolality,Calculated 292.3 MOS/KG (273-304)
[2018-10-07 07:27] LABS: Band Neutrophils 3 % (0-10); Lymphocytes 9 % (20-55); Platelet Estimate Decreased; Segmented Neutrophils 71 % (50-85); Total Cells Counted 100
[2018-10-07 07:28] LABS: Hypochromasia 1+; Ovalocytes Slight
[2018-10-07] MEDS: CARVEDILOL 12.5 MG TABLET PO SCH ×2 (09:02→17:09)
[2018-10-07] MEDS: amLODIPine 10 MG TABLET PO SCH (09:02)
[2018-10-07] MEDS: OLMESARTAN 20 MG TABLET PO SCH (09:02)
[2018-10-07] MEDS: FUROSEMIDE 40 MG/4 ML VIAL IV SCH ×2 (09:02→17:02)
[2018-10-07] MEDS: OSELTAMIVIR 30 MG CAPSULE PO SCH ×2 (09:50→21:25)
[2018-10-07] MEDS: PANTOPRAZOLE 40 MG TABLET PO SCH (09:50)
[2018-10-07] MEDS: CHOLECALCIFEROL 1,000 UNIT TABLET PO SCH (09:50)
[2018-10-07 09:51] LABS: INR 3.3
[2018-10-07] MEDS: ALLOPURINOL 100 MG TABLET PO SCH (09:51)
[2018-10-07 09:52] LABS: PT Patient Result 35.4 SECS
[2018-10-07] MEDS: cefTRIAXone 1,000 MG in SYRINGE 1 EACH IV SCH (09:55)
[2018-10-07] MEDS: WARFARIN 5 MG TABLET PO SCH (17:09)
[2018-10-07] MEDS: ATORVASTATIN 80 MG TABLET PO SCH (21:25)
[2018-10-08] MEDS: LEVOTHYROXINE 50 MCG TABLET PO SCH (06:08)
[2018-10-08 07:09] LABS: Eosinophils % 0.4 % (0.00-10.9); Hematocrit 32.9 VOL% (35.7-47.0); Immature Granulocytes % 0.2 %; Immature Granulocytes Absolute 0.01 #; Lymphocytes # 1.4 10*3/uL (1.4-4.0); Lymphocytes % 27.8 % (21.3-54.2); Mean Corpuscular HGB Conc 30.4 GM/DL (32-36); Mean Corpuscular Hemoglobin 34 PG (27-34); Mean Corpuscular Volume 111.9 FL (87-102); Mean Platelet Volume 14.2 FL (9.6-12.0); Monocytes # 0.6 10*3/uL (0.11-0.8); Monocytes % 11.2 % (1.7-12.7); Neutrophils # 3.1 10*3/uL (1.4-7.4); Neutrophils % 60.4 % (38.7-73.9); Red Blood Count 2.94 MC/CUMM (3.8-5.5); Red Cell Distribution Width 15.3 % (9.3-17.3); White Blood Count 5.1 T/CUMM (4-12)
[2018-10-08 07:12] LABS: Platelet Count 54 T/CUMM (130-400)
[2018-10-08 07:16] LABS: INR 4.4
[2018-10-08 07:22] LABS: PT Patient Result 46.8 SECS
[2018-10-08 07:30] LABS: Band Neutrophils 2 % (0-10); Eosinophils 1 % (0-10); Hypochromasia 1+; Lymphocytes 17 % (20-55); Nucleated Red Blood Cells 3 (0-5); Ovalocytes Slight; Platelet Estimate Decreased; Segmented Neutrophils 71 % (50-85); Total Cells Counted 100
[2018-10-08] MEDS ORDERED: IMMUNE GLOBULIN 10% 20 GM, IMMUNE GLOBULIN 10% 10 GM in PREMIX 1 EACH IV ONE (08:37)
[2018-10-08] MEDS: CARVEDILOL 12.5 MG TABLET PO SCH ×2 (09:09→16:29)
[2018-10-08] MEDS: FUROSEMIDE 40 MG/4 ML VIAL IV SCH ×2 (09:09→16:29)
[2018-10-08] MEDS: cefTRIAXone 1,000 MG in SYRINGE 1 EACH IV SCH (09:17)
[2018-10-08] MEDS: ALLOPURINOL 100 MG TABLET PO SCH (09:18)
[2018-10-08] MEDS: CHOLECALCIFEROL 1,000 UNIT TABLET PO SCH (09:18)
[2018-10-08] MEDS: PANTOPRAZOLE 40 MG TABLET PO SCH (09:18)
[2018-10-08] MEDS: OSELTAMIVIR 30 MG CAPSULE PO SCH ×2 (09:18→21:34)
[2018-10-08] MEDS: cefTAZidime 1,000 MG in SYRINGE 1 EACH IV SCH (15:36)
[2018-10-08] MEDS: ATORVASTATIN 80 MG TABLET PO SCH (21:34)
[2018-10-09 05:09] LABS: Basophils % 0.2 % (0.0-0.8); Eosinophils % 0.9 % (0.00-10.9); Hemoglobin 10.3 GM/DL (12.0-16.0); Immature Granulocytes % 0.7 %; Immature Granulocytes Absolute 0.03 #; Lymphocytes # 1.2 10*3/uL (1.4-4.0); Lymphocytes % 26.4 % (21.3-54.2); Mean Corpuscular HGB Conc 30.3 GM/DL (32-36); Mean Corpuscular Hemoglobin 34 PG (27-34); Mean Corpuscular Volume 111.5 FL (87-102); Monocytes # 0.6 10*3/uL (0.11-0.8); Monocytes % 12.2 % (1.7-12.7); Neutrophils # 2.7 10*3/uL (1.4-7.4); Neutrophils % 59.6 % (38.7-73.9); Platelet Count 56 T/CUMM (130-400); Red Blood Count 3.05 MC/CUMM (3.8-5.5); Red Cell Distribution Width 15.2 % (9.3-17.3); White Blood Count 4.5 T/CUMM (4-12)
[2018-10-09 05:17] LABS: INR 4.3
[2018-10-09 05:18] LABS: PT Patient Result 46.6 SECS
[2018-10-09 05:19] LABS: Calcium 8.2 MG/DL (8.5-10.1); Osmolality,Calculated 292.3 MOS/KG (273-304); Potassium 3.8 MMOL/L (3.5-5.1)
[2018-10-09 05:36] LABS: Band Neutrophils 1 % (0-10); Eosinophils 1 % (0-10); Hypochromasia 1+; Lymphocytes 22 % (20-55); Platelet Estimate Decreased; Segmented Neutrophils 64 % (50-85); Total Cells Counted 100
[2018-10-09] MEDS: LEVOTHYROXINE 50 MCG TABLET PO SCH (06:12)
[2018-10-09] MEDS: cefTAZidime 1,000 MG in SYRINGE 1 EACH IV SCH ×2 (09:50→15:05)
[2018-10-09] MEDS: CHOLECALCIFEROL 1,000 UNIT TABLET PO SCH (09:56)
[2018-10-09] MEDS: OLMESARTAN 20 MG TABLET PO SCH (09:56)
[2018-10-09] MEDS: amLODIPine 10 MG TABLET PO SCH (09:56)
[2018-10-09] MEDS: OSELTAMIVIR 30 MG CAPSULE PO SCH ×2 (09:57→21:16)
[2018-10-09] MEDS: CARVEDILOL 12.5 MG TABLET PO SCH ×2 (09:57→16:37)
[2018-10-09] MEDS: PANTOPRAZOLE 40 MG TABLET PO SCH (09:57)
[2018-10-09] MEDS: ALLOPURINOL 100 MG TABLET PO SCH (09:57)
[2018-10-09] MEDS: FUROSEMIDE 40 MG TABLET PO SCH ×2 (09:57→17:19)
[2018-10-09] MEDS: ATORVASTATIN 80 MG TABLET PO SCH (21:16)
[2018-10-10] MEDS: cefTAZidime 1,000 MG in SYRINGE 1 EACH IV SCH (02:45)
[2018-10-10] MEDS: LEVOTHYROXINE 50 MCG TABLET PO SCH (06:25)
[2018-10-10 06:57] LABS: INR 2.8
[2018-10-10 07:12] LABS: PT Patient Result 30.3 SECS
[2018-10-10 07:55] LABS: Basophils % 0.3 % (0.0-0.8); Eosinophils # 0.1 10*3/uL (0.0-0.87); Eosinophils % 1.8 % (0.00-10.9); Hematocrit 32.2 VOL% (35.7-47.0); Hemoglobin 9.7 GM/DL (12.0-16.0); Immature Granulocytes % 0.6 %; Immature Granulocytes Absolute 0.02 #; Lymphocytes % 28.5 % (21.3-54.2); Mean Corpuscular HGB Conc 30.1 GM/DL (32-36); Mean Corpuscular Hemoglobin 34 PG (27-34); Mean Corpuscular Volume 112.2 FL (87-102); Mean Platelet Volume 14.3 FL (9.6-12.0); Monocytes # 0.5 10*3/uL (0.11-0.8); Monocytes % 14.7 % (1.7-12.7); Neutrophils # 1.8 10*3/uL (1.4-7.4); Neutrophils % 54.1 % (38.7-73.9); Red Blood Count 2.87 MC/CUMM (3.8-5.5); Red Cell Distribution Width 14.9 % (9.3-17.3); White Blood Count 3.4 T/CUMM (4-12)
[2018-10-10 07:58] LABS: Platelet Count 49 T/CUMM (130-400)
[2018-10-10 08:11] LABS: Calcium 8.2 MG/DL (8.5-10.1); Osmolality,Calculated 291.1 MOS/KG (273-304); Potassium 3.9 MMOL/L (3.5-5.1)
[2018-10-10] MEDS ORDERED: IMMUNE GLOBULIN 10% 20 GM in PREMIX 1 EACH IV ONE (08:19)
[2018-10-10 08:30] LABS: Anisocytosis 1+; Band Neutrophils 6 % (0-10); Basophilic Stippling Slight; Eosinophils 2 % (0-10); Lymphocytes 16 % (20-55); Platelet Estimate Decreased; Segmented Neutrophils 60 % (50-85); Total Cells Counted 100
[2018-10-10] MEDS: amLODIPine 10 MG TABLET PO SCH (08:35)
[2018-10-10] MEDS: FUROSEMIDE 40 MG TABLET PO SCH ×2 (08:35→17:12)
[2018-10-10] MEDS: CHOLECALCIFEROL 1,000 UNIT TABLET PO SCH (08:35)
[2018-10-10] MEDS: ALLOPURINOL 100 MG TABLET PO SCH (08:35)
[2018-10-10] MEDS: PANTOPRAZOLE 40 MG TABLET PO SCH (08:35)
[2018-10-10] MEDS: OLMESARTAN 20 MG TABLET PO SCH (08:35)
[2018-10-10] MEDS: OSELTAMIVIR 30 MG CAPSULE PO SCH (08:35)
[2018-10-10] MEDS: CARVEDILOL 12.5 MG TABLET PO SCH ×2 (08:36→17:12)
[2018-10-10] MEDS: ATORVASTATIN 80 MG TABLET PO SCH (21:20)
[2018-10-11 04:38] LABS: INR 2.5
[2018-10-11 04:40] LABS: Calcium 8.2 MG/DL (8.5-10.1); Osmolality,Calculated 291.1 MOS/KG (273-304); Potassium 4.1 MMOL/L (3.5-5.1)
[2018-10-11 04:42] LABS: PT Patient Result 26.7 SECS
[2018-10-11] MEDS: LEVOTHYROXINE 50 MCG TABLET PO SCH (06:40)
[2018-10-11 07:40] LABS: Basophils % 0.3 % (0.0-0.8); Eosinophils # 0.1 10*3/uL (0.0-0.87); Eosinophils % 2.1 % (0.00-10.9); Hematocrit 28.6 VOL% (35.7-47.0); Hemoglobin 8.8 GM/DL (12.0-16.0); Immature Granulocytes % 0.8 %; Immature Granulocytes Absolute 0.03 #; Lymphocytes # 0.9 10*3/uL (1.4-4.0); Lymphocytes % 23.8 % (21.3-54.2); Mean Corpuscular HGB Conc 30.8 GM/DL (32-36); Mean Corpuscular Hemoglobin 34 PG (27-34); Mean Corpuscular Volume 111.7 FL (87-102); Monocytes # 0.5 10*3/uL (0.11-0.8); Monocytes % 12.4 % (1.7-12.7); Neutrophils # 2.3 10*3/uL (1.4-7.4); Neutrophils % 60.6 % (38.7-73.9); Platelet Count 44 T/CUMM (130-400); Red Blood Count 2.56 MC/CUMM (3.8-5.5); Red Cell Distribution Width 14.9 % (9.3-17.3); White Blood Count 3.9 T/CUMM (4-12)
[2018-10-11 08:01] LABS: Anisocytosis 1+; Band Neutrophils 3 % (0-10); Eosinophils 1 % (0-10); Lymphocytes 26 % (20-55); Macrocytosis 1+; Platelet Estimate Decreased; Segmented Neutrophils 64 % (50-85); Total Cells Counted 100
[2018-10-11] MEDS: CHOLECALCIFEROL 1,000 UNIT TABLET PO SCH (10:41)
[2018-10-11] MEDS: OLMESARTAN 20 MG TABLET PO SCH (10:41)
[2018-10-11] MEDS: amLODIPine 10 MG TABLET PO SCH (10:41)
[2018-10-11] MEDS: PANTOPRAZOLE 40 MG TABLET PO SCH (10:42)
[2018-10-11] MEDS: FUROSEMIDE 40 MG TABLET PO SCH (10:42)
[2018-10-11] MEDS: CARVEDILOL 12.5 MG TABLET PO SCH (10:42)
[2018-10-11] MEDS: ALLOPURINOL 100 MG TABLET PO SCH (10:42)
[2018-10-11 12:11] VITALS: BP 133/65
[2018-10-11] MEDS ORDERED: WARFARIN 5 MG TABLET PO SCH (18:00)
== END 2018-10-11 14:10 | disposition swing bed (61) | DRG 291 ==
LOC: N.ED 12:27 → SUATTDRO 16:23 → N.EDINP 16:23 → N.5E 18:36
PROVIDERS: ADMIT Internal Medicine; ATTEND Internal Medicine Cardiovascular Disease

== ENCOUNTER 2019-11-02 18:20 | Inpatient (IN) ==
[2019-11-02] MEDS ORDERED: ALBUTEROL/IPRATROPIUM 3 ML NEB RESP TX STA (19:17)
[2019-11-02] MEDS ORDERED: methylPREDNISolone SOD SUC 125 MG/2 ML VIAL IV STA (19:17)
[2019-11-02] MEDS ORDERED: FUROSEMIDE 100 MG/10 ML VIAL IV STA (19:53)
[2019-11-02 19:57] LABS: ABG Base Excess -3.1 MMOL/L (-2.5-2.5); ABG HCO3 21.6 MMOL/L (20-26); ABG Oxygen Saturation 88.7 % (95-100); ABG PCO2 37.5 MM HG (35-48); ABG TCO2 19.4 MMOL/L (23-27); Allen Test Positive; Pt O2 Delivery Device Room Air
[2019-11-02 20:15] LABS: Basophils % 0.3 % (0.0-0.8); Eosinophils # 0.2 10*3/uL (0.0-0.87); Eosinophils % 4.3 % (0.00-10.9); Hematocrit 36.6 VOL% (35.7-47.0); Hemoglobin 11.4 GM/DL (12.0-16.0); Immature Granulocytes % 0.3 %; Immature Granulocytes Absolute 0.01 #; Lymphocytes # 0.8 10*3/uL (1.4-4.0); Lymphocytes % 23.2 % (21.3-54.2); Mean Corpuscular HGB Conc 31.1 GM/DL (32-36); Mean Corpuscular Volume 112.3 FL (87-102); Mean Platelet Volume 14.5 FL (9.6-12.0); Monocytes % 12.9 % (1.7-12.7); Platelet Count 68 T/CUMM (130-400); Red Blood Count 3.26 MC/CUMM (3.8-5.5); Red Cell Distribution Width 15.8 % (9.3-17.3); White Blood Count 3.5 T/CUMM (4-12)
[2019-11-02 20:26] LABS: Albumin 3.4 G/DL (3.4-5.0); Bilirubin,Total 0.5 MG/DL (0.2-1.0); Calcium 8.4 MG/DL (8.5-10.1); Total Protein 7.1 G/DL (6.4-8.3)
[2019-11-02 20:26] LABS: Amorphous Crystals,Urine Occasional /HPF (Few); Apearance,Urine Slightly Hazy (Clear); Bacteria,Urine Moderate /HPF (Few); Bilirubin,Urine Negative (Negative); Blood, Urine Negative (Negative); Glucose,Urine (UA) Negative (Negative); Hyaline Casts,Urine 17 /LPF (0-3); Ketones,Urine Negative (Negative); Nitrite,Urine Negative (Negative); Protein,Urine 100 MG/DL; Squamous Epithelial Cell,Urine Occasional /HPF (0-10); Urine Color Yellow (Yellow); WBC,Urine 3 /HPF (0-6)
[2019-11-02 20:28] LABS: INR 1.8; PT Patient Result 19.4 SECS (9.6-12.2); Partial Thromboplastin Time 36.6 SECS (20.8-36.0)
[2019-11-02 20:29] LABS: Troponin I 0.212 NG/ML (0.00-0.045)
[2019-11-02] MEDS ORDERED: cefTRIAXone 1,000 MG in SODIUM CHLORIDE 0.9% 100 ML IV STA (20:44)
[2019-11-02] MEDS ORDERED: ONDANSETRON 4 MG/2 ML VIAL IV PRN (22:42)
[2019-11-02] MEDS ORDERED: ALBUTEROL 2.5 MG/3 ML NEB RESP TX PRN (22:42)
[2019-11-02] MEDS ORDERED: ACETAMINOPHEN 325 MG TABLET PO PRN (22:42)
[2019-11-02] MEDS ORDERED: ENOXAPARIN 80 MG/0.8 ML SYRINGE SUBCUT ONE (22:48)
[2019-11-03 00:20] LABS: Folate 12.8 NG/ML (5.4-24.0)
[2019-11-03 04:16] LABS: Basophils % 0.3 % (0.0-0.8); Hematocrit 35.4 VOL% (35.7-47.0); Hemoglobin 11.4 GM/DL (12.0-16.0); Immature Granulocytes % 0.5 %; Immature Granulocytes Absolute 0.02 #; Lymphocytes # 0.4 10*3/uL (1.4-4.0); Mean Corpuscular HGB Conc 32.2 GM/DL (32-36); Mean Corpuscular Volume 108.9 FL (87-102); Monocytes % 1.5 % (1.7-12.7); Neutrophils % 87.7 % (38.7-73.9); Platelet Count 63 T/CUMM (130-400); Red Blood Count 3.25 MC/CUMM (3.8-5.5); Red Cell Distribution Width 15.6 % (9.3-17.3); White Blood Count 3.9 T/CUMM (4-12)
[2019-11-03 04:31] LABS: INR 1.9; PT Patient Result 20.8 SECS (9.6-12.2); Partial Thromboplastin Time 40.4 SECS (20.8-36.0)
[2019-11-03 04:40] LABS: Hypochromasia 1+; Macrocytosis 1+; Polychromasia Slight
[2019-11-03 04:41] LABS: Platelet Estimate Decreased
[2019-11-03 04:43] LABS: Albumin 3.2 G/DL (3.4-5.0); Bilirubin,Total 0.9 MG/DL (0.2-1.0); Calcium 8.8 MG/DL (8.5-10.1); Osmolality,Calculated 292.1 MOS/KG (273-304); Total Protein 7.2 G/DL (6.4-8.3)
[2019-11-03] MEDS: LEVOTHYROXINE 75 MCG TABLET PO SCH (06:26)
[2019-11-03] MEDS: FUROSEMIDE 40 MG/4 ML VIAL IV SCH ×2 (09:01→15:26)
[2019-11-03] MEDS: PANTOPRAZOLE 40 MG TABLET PO SCH (09:01)
[2019-11-03] MEDS: amLODIPine 10 MG TABLET PO SCH (09:01)
[2019-11-03] MEDS: carvediloL 12.5 MG TABLET PO SCH ×2 (09:01→17:26)
[2019-11-03] MEDS: allopurinoL 100 MG TABLET PO SCH (09:01)
[2019-11-03] MEDS ORDERED: WARFARIN 5 MG TABLET PO SCH (18:00)
[2019-11-03] MEDS: ATORVASTATIN 40 MG TABLET PO SCH (21:01)
[2019-11-04 05:28] LABS: Basophils % 0.2 % (0.0-0.8); Hematocrit 32.9 VOL% (35.7-47.0); Hemoglobin 10.4 GM/DL (12.0-16.0); Immature Granulocytes % 0.2 %; Immature Granulocytes Absolute 0.01 #; Lymphocytes # 0.9 10*3/uL (1.4-4.0); Lymphocytes % 21.5 % (21.3-54.2); Mean Corpuscular HGB Conc 31.6 GM/DL (32-36); Mean Corpuscular Volume 110.4 FL (87-102); Monocytes % 14.4 % (1.7-12.7); Neutrophils % 63.7 % (38.7-73.9); Platelet Count 64 T/CUMM (130-400); Red Blood Count 2.98 MC/CUMM (3.8-5.5); Red Cell Distribution Width 15.7 % (9.3-17.3); White Blood Count 4.3 T/CUMM (4-12)
[2019-11-04] MEDS: LEVOTHYROXINE 75 MCG TABLET PO SCH (05:35)
[2019-11-04 05:36] LABS: INR 2.3
[2019-11-04 05:37] LABS: PT Patient Result 25.3 SECS (9.6-12.2)
[2019-11-04 05:50] LABS: Calcium 8.4 MG/DL (8.5-10.1); Osmolality,Calculated 296.1 MOS/KG (273-304)
[2019-11-04] MEDS: allopurinoL 100 MG TABLET PO SCH (09:20)
[2019-11-04] MEDS: carvediloL 12.5 MG TABLET PO SCH ×2 (09:21→17:13)
[2019-11-04] MEDS: PANTOPRAZOLE 40 MG TABLET PO SCH (09:21)
[2019-11-04] MEDS: FUROSEMIDE 40 MG/4 ML VIAL IV SCH (09:21)
[2019-11-04] MEDS: amLODIPine 10 MG TABLET PO SCH (09:21)
[2019-11-04] MEDS: FUROSEMIDE 40 MG TABLET PO SCH (17:12)
[2019-11-04] MEDS ORDERED: WARFARIN 7.5 MG TABLET PO SCH (18:00)
[2019-11-04] MEDS: ATORVASTATIN 40 MG TABLET PO SCH (20:04)
[2019-11-05 04:51] LABS: INR 2.4
[2019-11-05] MEDS: LEVOTHYROXINE 75 MCG TABLET PO SCH (05:49)
[2019-11-05] MEDS: allopurinoL 100 MG TABLET PO SCH (09:00)
[2019-11-05] MEDS: carvediloL 12.5 MG TABLET PO SCH (09:00)
[2019-11-05] MEDS: FUROSEMIDE 40 MG TABLET PO SCH (09:00)
[2019-11-05] MEDS: PANTOPRAZOLE 40 MG TABLET PO SCH (09:00)
[2019-11-05] MEDS: amLODIPine 10 MG TABLET PO SCH (09:01)
[2019-11-05 12:12] VITALS: BP 118/55
== END 2019-11-05 14:45 | disposition swing bed (61) | DRG 291 ==
LOC: EDUNIT# → EDBD → N.ED 18:20 → N.EDINP 22:40 → N.TELES 23:21
PROVIDERS: ADMIT Internal Medicine; ATTEND Internal Medicine